=== PATIENT | male | born 1980 | race Caucasian/White ===

== ENCOUNTER 2016-12-25 19:40 | Emergency (ER) | payer OTHER ==
--- NOTE | 2016-12-25 22:20 | ED NURSING NOTES ---
Clinical Report - Nurses [facility] [address] [place] [address] 12/25/2016 19:41 Patient: CRISTIAN CORNELIUS TRIAGE Triage time 19:56. Acuity: LEVEL 3. Chief Complaint: ABDOMINAL PAIN and NAUSEA and ("6th gallbladder attack"). Alert. No acute distress. SEPSIS SCREEN: Sepsis Screen: negative. Negative (no infection suspected/documented). --20:09 Rafia Kimbrough R.N. 20:05 12/25/16. BP: 133/79. HR: 79. RR: 20. O2 saturation: 99% on room air. Temp: 97.2 F. Pain level now: 07/08. --20:09 Rafia Kimbrough R.N. Weight: 127 kg stated. Height/Length: 72 inches Per Patient. BMI: 38. --20:06 Rafia Kimbrough R.N. Medications Ranitidine HCl Oral 150 mg, 2x a day. --20:10 Rafia Kimbrough R.N. The following entry was struck by Rafia Kimbrough R.N., 20:10 (12/25/16) Reason - other. <<STRICKEN ENTRY-- Testosterone Transdermal. --19:56 Rafia Kimbrough R.N. --END STRIKE>>. Medication/allergy information source: the patient. --20:09 Rafia Kimbrough R.N. Allergies No Known Drug Allergy. --19:56 Rafia Kimbrough R.N. History Arrived by private vehicle. Historian: patient and family. Accompanied by family. Primary physician (chet). This started today. This is a recurrent problem and onset was abrupt. He has had nausea and abdominal pain. The pain is described as located in the upper abdomen and RUQ. No vomiting, diarrhea or constipation. Last oral intake by patient was (3 pm today). Treatment DRILL RIG OPERATOR HELPER: None. PAST MEDICAL HX: Immunizations: status is unknown. SOCIAL HX: Smoker- current status unknown (cigar). Occasional alcohol use. No drug use. No recent travel. No known contact with a sick individual. FALL RISK ASSESSMENT: Fall risk assessment completed. No fall risk identified. NUTRITIONAL RISK ASSESSMENT: The nutritional risk assessment revealed no deficiencies. FUNCTIONAL ASSESSMENT: Functional assessment: no impairments noted. LEARNING NEEDS ASSESSMENT: The learning needs assessment revealed no barriers. SKIN INTEGRITY ASSESSMENT: Skin integrity risk assessment completed. No skin integrity risk identified. --20:09 Rafia Kimbrough R.N. PROBLEMS: Gallbladder Disease. GI Disease. Abdominal Pain. Gastroesophageal Reflux Disease. --19:57 Rafia Kimbrough R.N. Interventions ID band on patient. To room. --20:09 Rafia Kimbrough R.N. PHYSICAL ASSESSMENT Ambulatory to room. Patient gowned. GENERAL / NEURO / PSYCH: Alert. Oriented X 4. Appears anxious. HEENT: Mucous membranes are pink. RESPIRATORY: Respirations not labored. CVS: Capillary refill less than 2 seconds. GI / : Abdominal tenderness in the right upper quadrant and epigastric area. SKIN: Skin is warm and dry. --20:10 Rafia Kimrbough R.N. NURSING PROGRESS NOTES Patient gowned. Head of bed elevated. Two patient identifiers checked. Call light placed in reach. Side rails up x 1. Bed placed in lowest position. Brakes of bed on. Patient ready for evaluation. --20:10 Rafia Kimbrough R.N. 20:21 12/25/2016 Site #1 started via IV in the right antecubital space with an 20g angiocath, with aseptic technique and good blood return; one attempt. Blood drawn: rainbow set. Labeled in the presence of the patient and sent to the lab. Saline lock flushed with 10 mL saline. --20:21 Rashard Casiano R.N. 20:35 12/25/2016 Toradol IVP 30 mg given over 1 minute(s) via site #1. Allergies verified and confirmed 5 rights. IV patency established. IV site checked: no pain, redness, or swelling. IV flushed thoroughly pre- and post-medication administration. IVP given by RN. --20:38 Rafia Kimbrough R.N. 20:39 12/25/2016 Zofran (Ondansetron HCl) IVP 4 mg given over 1 minute(s) via site #1. Allergies verified and confirmed 5 rights. IV patency established. IV site checked: no pain, redness, or swelling. IV flushed thoroughly pre- and post-medication administration. IVP given by RN. --20:39 Rafia Kimbrough R.N. 21:30 12/25/2016 Dilaudid (HYDROmorphone HCl PF) IVP 1 mg given. via site #1. Allergies verified, confirmed 5 rights and sedative warning given to the patient. IV patency established. IV site checked: no pain, redness, or swelling. IV flushed thoroughly pre- and post-medication administration. IVP given by RN. --21:30 Rafia Kimbrough R.N. 21:40. ( US at the bedside.). --21:56 Rafia Kimbrough R.N. Care transferred and report given (GWYN Mccray). --22:20 Rafia Kimbrough R.N. 22:54 12/25/2016 Site #1 removed upon discharge. Pressure dressing applied. --22:54 Jesus Paulino R.N. DISPOSITION / DISCHARGE Departure time: 2250. Condition at departure: improved. No learning barriers present. Discharge instructions provided and reviewed with the patient and spouse. Reviewed warnings. Reviewed medication(s). Treatments reviewed. Reviewed referrals. Patient and spouse verbalized understanding. Written instructions provided in Luxembourgish. The patient was discharged home and accompanied by spouse. He left the Emergency Department ambulatory and via private vehicle. Spouse driving. FALL RISK ASSESSMENT: Fall risk assessment completed. No fall risk identified. --22:56 Jesus Paulino R.N. 22:55 12/25/16. BP: 130/78. HR: 78. RR: 16. O2 saturation: 99%. Temp: 98 F. Pain level now 0/10. --22:56 Jesus Paulino R.N. Locked/Released at 12/25/2016 22:56 by Jesus Paulino R.N.
--- NOTE | 2016-12-25 22:20 | ED ORDER SUMMARY ---
..... Patient: CRISTIAN CORNELIUS OrderSheet [facility] VisitID: [id number] [place] [address] 36y, M Registration Date/Time: 12/25/2016 ORDER SHEET Weight: 127.0 kg (stated) Allergies: No Known Drug Allergy GENERAL ORDERS: US Abdomen Limited (No) Urgent (20:19 12/25/2016 HBivens A.R.N.P.) (Ack 20:29 LTapper) (21:30 SRoberts R.N.) CBC w Diff Urgent (20:20 12/25/2016 HBivens A.R.N.P.) (20:21 TLewis R.N.) CMP Urgent (20:20 12/25/2016 HBivens A.R.N.P.) (20:21 TLewis R.N.) UA-Culture if indicated Urgent (20:20 12/25/2016 HBivens A.R.N.P.) (Ack 20:33 LTapper) (22:55 JBullard R.N.) (Cancelled: Patient Left22:55 JBullard R.N.) Amylase Urgent (20:20 12/25/2016 HBivens A.R.N.P.) (20:22 TLewis R.N.) Lipase Urgent (20:20 12/25/2016 HBivens A.R.N.P.) (20:22 TLewis R.N.) MEDICATION ORDERS: IV FLUIDS: Toradol IV 30 mg (NOW) (20:19 12/25/2016 HBivens A.R.N.P.) (Ack 20:28 SRoberts R.N.) (20:38 SRoberts R.N.) Zofran IV 4 mg (NOW) (20:19 12/25/2016 HBivens A.R.N.P.) (Ack 20:28 SRoberts R.N.) (20:39 SRoberts R.N.) IV Saline Lock (20:20 12/25/2016 HBivens A.R.N.P.) (20:21 TLewis R.N.) Dilaudid IV 1 mg (HIGH ALERT MEDICATION, NOW) (21:17 12/25/2016 Luli A.R.N.P.) (21:30 Colton Alves) ORDER SHEET NOTES: [Electronically signed by Jesus Paulino R.N. (22:56 12/25/2016)] [Electronically signed by Louisa NuñezRElaineNElainePElaine (12:00 12/26/2016)] [Electronically locked/signed by Jesus Paulino R.N. (22:56 12/25/2016)]
--- NOTE | 2016-12-25 22:20 | ED ORDER SUMMARY ---
..... Patient: CRISTIAN CORNELIUS OrderSheet [facility] VisitID: [id number] [place] [address] 36y, M Registration Date/Time: 12/25/2016 ORDER SHEET Weight: 127.0 kg (stated) Allergies: No Known Drug Allergy GENERAL ORDERS: US Abdomen Limited (No) Urgent (20:19 12/25/2016 HBivens A.R.N.P.) (Ack 20:29 LTapper) (21:30 SRoberts R.N.) CBC w Diff Urgent (20:20 12/25/2016 HBivens A.R.N.P.) (20:21 TLewis R.N.) CMP Urgent (20:20 12/25/2016 HBivens A.R.N.P.) (20:21 TLewis R.N.) UA-Culture if indicated Urgent (20:20 12/25/2016 HBivens A.R.N.P.) (Ack 20:33 LTapper) (22:55 JBullard R.N.) (Cancelled: Patient Left22:55 JBullard R.N.) Amylase Urgent (20:20 12/25/2016 HBivens A.R.N.P.) (20:22 TLewis R.N.) Lipase Urgent (20:20 12/25/2016 HBivens A.R.N.P.) (20:22 TLewis R.N.) MEDICATION ORDERS: IV FLUIDS: Toradol IV 30 mg (NOW) (20:19 12/25/2016 HBivens A.R.N.P.) (Ack 20:28 SRoberts R.N.) (20:38 SRoberts R.N.) Zofran IV 4 mg (NOW) (20:19 12/25/2016 HBivens A.R.N.P.) (Ack 20:28 SRoberts R.N.) (20:39 SRoberts R.N.) IV Saline Lock (20:20 12/25/2016 HBivens A.R.N.P.) (20:21 TLewis R.N.) Dilaudid IV 1 mg (HIGH ALERT MEDICATION, NOW) (21:17 12/25/2016 Luli A.R.N.P.) (21:30 Colton Alves) ORDER SHEET NOTES: [Electronically signed by Jesus Paulino R.N. (22:56 12/25/2016)] [Electronically signed by Louisa NuñezRElaineNElainePElaine (12:00 12/26/2016)] [Electronically locked/signed by Jesus Paulino R.N. (22:56 12/25/2016)]
--- NOTE | 2016-12-25 22:20 | ED CLINICAL REPORT ---
Clinical Report - Physicians/Mid Levels [facility] [address] [place] [address] 12/25/2016 19:41 Patient: CRISTIAN CORNELIUS Time Seen: 19:53; upon arrival, initial patient contact, initial documentation, patient care assumed. Arrived- By private vehicle. Historian- patient. HISTORY OF PRESENT ILLNESS Chief Complaint: ABDOMINAL PAIN. At its maximum, severity described as severe. When seen in the E.D., severity described as severe. Modifying factors- worsened by food. Not relieved by anything. It is described as "pain". No radiation. It is described as located in the right upper quadrant. 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 It was abrupt in onset. The patient has had nausea. No loss of appetite, vomiting or diarrhea. No additional abdominal pain. (states his gallbladder is acting up, has done this many times before and the pain usually goes away in a few more hours, but this time he couldn't wait the pain out). No recent travel. Similar symptoms previously: Frequently, as bad. Recent medical care: The patient was seen recently in the office. ( had some gi scopes done a few days ago). REVIEW OF SYSTEMS No constipation, black stools, hematemesis, difficulty with urination or pain with urination. No urinary frequency, bloody stools, fever, chest pain or difficulty breathing. All systems otherwise negative, except as recorded above. PAST HISTORY See nurses notes. PROBLEMS: Gallbladder Disease. GI Disease. Abdominal Pain. Gastroesophageal Reflux Disease. --19:57 Rafia Kimbrough R.N. SOCIAL HISTORY Light tobacco smoker (cigar). Occasional alcohol use. No drug use. No recent travel. Is a local resident. FAMILY HISTORY Negative. ADDITIONAL NOTES The nursing notes have been reviewed with agreement regarding the chief complaint, HPI, ROS, PMH and patient medications and allergies. PHYSICAL EXAM Vital Signs: 12/25/2016 20:05 BP: 133/79. HR: 79. RR: 20. O2 saturation: 99%. Temp: 97.2 F. Pain level now: 8/10. Have been reviewed as normal and appear to be correct. Appearance: Alert. Oriented X3. No acute distress. Eyes: Pupils equal, round and reactive to light. Eyes normal inspection. Neck: Normal inspection. Neck supple. CVS: Normal heart rate and rhythm. Heart sounds normal. Pulses normal. Respiratory: No respiratory distress. Breath sounds normal. Chest nontender. Abdomen: Soft. Mild tenderness in the right upper quadrant. Bowel sounds normal. No organomegaly. No mass. Mildly obese. Tenderness present. Back: Normal inspection. Skin: Skin warm and dry. Normal skin color. No rash. Normal skin turgor. Extremities: Extremities exhibit normal ROM. No lower extremity edema. Neuro: Oriented X 3. No motor deficit. No sensory deficit. LABS, X-RAYS, AND EKG Abdominal Sonogram: No acute disease. (normal report from [facility]). Interpretation time: 21:48. Laboratory Tests: CBC w Diff: (MORALES: 12/25/2016 20:20) ( [facility] 12/25/2016 20:30) Final results Test Result Flag Units (Reference) WHITE BLOOD COUNT 7.5 K/uL (4.5-11.5) RED BLOOD COUNT 5.17 M/uL (4.50-5.90) HEMOGLOBIN 16.0 gm/dL (13.5-17.5) HEMATOCRIT 46.8 % (41.0-53.0) MEAN CELL VOLUME 91 fL (80-100) MEAN CORPUSCULAR HGB 31 pg (26-34) MEAN CORPUSCULAR HGB CONC 34 g/dL (31-37) RED CELL DISTRIBUTION WIDTH 12.9 % (11.6-14.8) PLATELET COUNT 179 K/uL (150-400) NEUTROPHIL % 80.5 H % (50-75) LYMPH % 12.6 L % (25-40) MONO % 5.7 % (3-14) EOSINOPHIL % 0.9 % (0-4) BASOPHIL % 0.3 % (0-2) CMP: (MORALES: 12/25/2016 20:20) ( [facility] 12/25/2016 20:59) Final results Test Result Flag Units (Reference) GLUCOSE 127 H mg/dL (70-110) BUN 19 H mg/dL (7-18) CREATININE 1.3 mg/dL (0.6-1.3) Estimated GFR >60 mL/min Estimated GFR- >60 mL/min Note: Persistent reduction over 3 months in eGFR<60 mL/min/1.73 m2 defines CKD. Patients with eGFR values>=60 mL/min/1.73 m2 may also have CKD if evidence ofpersistent proteinuria. Additional information may be foundat www.kidney.org. SODIUM 143 mmol/L (136-145) POTASSIUM 4.2 mmol/L (3.5-5.1) CHLORIDE 105 mmol/L (98-107) CARBON DIOXIDE 28 mmol/L (21-32) CALCIUM 8.3 L mg/dL (8.5-10.1) TOTAL PROTEIN 7.1 g/dL (6.4-8.2) ALBUMIN 4.2 g/dL (3.3-5.0) BILIRUBIN, TOTAL 0.3 mg/dL (0.0-1.0) ALKALINE PHOSPHATASE 86 U/L (46-116) AST (SGOT) 9 L U/L (15-37) ALT (SGPT) 58 U/L (12-78) LIPASE 148 U/L (73-393) AMYLASE 41 U/L (25-115) . PROGRESS AND PROCEDURES Course of Care: 20:50 12/25/16. pt has brief rebecca, nothing alarming, see report for full details. Patient counseled in person regarding the patient's stable condition, test results and diagnosis. 21:50. Differential Diagnosis: I considered gastritis, gastroenteritis, peptic ulcer disease, gastroesophageal reflux disease, acute appendicitis, diverticulitis, colon cancer, biliary colic, cholecystitis, cholelithiasis, hepatitis, pancreatitis, common bile duct obstruction, cholangitis, bile leak, ureterolithiasis and viral syndrome as a possible cause of abdominal pain in this patient. This is a partial list of diagnoses considered. Above considerations are based on history, physical exam, laboratory data and other information. Differential diagnosis was discussed with patient. Disposition: Discharged home in good and improved condition (22:20). Condition: good and stable. CLINICAL IMPRESSION Acute right upper quadrant abdominal pain of undetermined cause. INSTRUCTIONS Avoid fatty and fried/greasy foods. Warnings: GENERAL WARNINGS: Return or contact your physician immediately if your condition worsens or changes unexpectedly, if not improving as expected, or if other problems arise. SPECIFICALLY, return if you develop pain in the abdomen or pelvis, fever, the inability to keep fluids down, blood in vomitus, blood in diarrhea, fainting or lightheadedness. Prescription Medications: Zofran 4 mg: Take 1 orally every six hours as needed for nausea/vomiting. Dispense ten (10). No refills. Substitution is permissible. Pepcid 20 mg tablets: Take 1 orally every 12 hours. Dispense thirty (30). No refills. Substitution is permissible. Ultram 50 mg tablets: take 1-2 orally every 6 hours as needed for pain. Dispense twenty (20). No refills. Substitution is permissible. Follow-up: Follow up with your doctor in about three days even if well. Call for an appointment. Summary of care provided to patient. Understanding of the discharge instructions verbalized by patient. (Electronically signed by Louisa Nuñez A.R.N.P. 12/26/2016 12:00)
--- NOTE | 2016-12-25 22:40 | DIAGNOSTIC IMAGING REPORT ---
PROCEDURE: US ABDOMEN ULTRASOUND-LIMITED INDICATION: Right abdominal pain. TECHNIQUE: Yeung scale and color Doppler sonographic images of the abdomen were obtained. COMPARISON: Compared to abdominal ultrasound on 07/27/2016 FINDINGS: Gallbladder is normal. No evidence of gallstones. Common duct is normal (3 mm). Portions of the liver, pancreas, and right kidney are seen, and are normal. IMPRESSION: 1. Negative ultrasound of the gallbladder and right upper quadrant.
--- NOTE | 2016-12-26 12:00 | ED MED RECONCILIATION SUMMARY ---
Patient: CRISTIAN CORNELIUS Medication Reconciliation Report [facility] VisitID: [id number] [address] [place] [address] 36y, M Registration Date/Time: 12/25/2016 Weight: 127.0 kg Height/Length: 72 in. BMI: 38.0 ALLERGIES: No Known Drug Allergy The patient's Home Medications are listed below: THE FOLLOWING MEDICATIONS NEED TO BE RECONCILED: Ranitidine HCl Oral 150 mg, 2x a day The source(s) of the original Home Medication information: patient The following Medications were given to the patient in the Emergency Department: Toradol [IVP] IVP 30 mg, administered: 12/25/2016 8:35:00 PM Zofran [IVP] IVP 4 mg, administered: 12/25/2016 8:39:00 PM Dilaudid [IVP] IVP 1 mg, administered: 12/25/2016 9:30:00 PM The following Medications were prescribed to the patient: Zofran 4 mg: Take 1 orally every six hours as needed for nausea/vomiting. Dispense ten (10). No refills. Substitution is permissible. -- Louisa Nuñez, A.R.N.P. Pepcid 20 mg tablets: Take 1 orally every 12 hours. Dispense thirty (30). No refills. Substitution is permissible. -- Louisa Nuñez A.R.N.P. Ultram 50 mg tablets: take 1-2 orally every 6 hours as needed for pain. Dispense twenty (20). No refills. Substitution is permissible. -- Louisa Nuñez A.R.N.P.
--- NOTE | 2016-12-26 12:00 | ED MAR SUMMARY ---
..... Medication Administration Record [facility] [address] [place] [address] Patient: CRISTIAN CORNELIUS Visit ID: [id number] 36y, M Weight: 127.0 kg Height/Length: 72 in BMI: 38 ALLERGIES: No Known Drug Allergy Given 20:35 12/25/2016 Rafia Kimbrough R.N. Medication Administered: TORADOL [IVP], Dose: 30 mg IVP over 1 minute(s), Site: #1 right AC. Medication Ordered: Toradol IV 30 mg (NOW). Given 20:39 12/25/2016 Rafia Kimbrough R.N. Medication Administered: ZOFRAN [IVP] (ONDANSETRON HCL), Dose: 4 mg IVP over 1 minute(s), Site: #1 right AC. Medication Ordered: Zofran IV 4 mg (NOW). Given 21:30 12/25/2016 Rafia Kimbrough R.N. Medication Administered: DILAUDID [IVP] (HYDROMORPHONE HCL PF), Dose: 1 mg IVP, Site: #1 right AC. Medication Ordered: Dilaudid IV 1 mg (HIGH ALERT MEDICATION, NOW).
--- NOTE | 2016-12-26 12:00 | ED DISCHARGE INSTRUCTIONS ---
Patient: CRISTIAN CORNELIUS General Instructions [facility] VisitID: [id number] [place] [address] 36y, M Registration Date/Time: 12/25/2016 Acute right upper quadrant abdominal pain of undetermined cause. INSTRUCTIONS Avoid fatty and fried/greasy foods. Warnings: GENERAL WARNINGS: Return or contact your physician immediately if your condition worsens or changes unexpectedly, if not improving as expected, or if other problems arise. SPECIFICALLY, return if you develop pain in the abdomen or pelvis, fever, the inability to keep fluids down, blood in vomitus, blood in diarrhea, fainting or lightheadedness. Prescription Medications: Zofran 4 mg: Take 1 orally every six hours as needed for nausea/vomiting. Dispense ten (10). No refills. Substitution is permissible. Pepcid 20 mg tablets: Take 1 orally every 12 hours. Dispense thirty (30). No refills. Substitution is permissible. Ultram 50 mg tablets: take 1-2 orally every 6 hours as needed for pain. Dispense twenty (20). No refills. Substitution is permissible. Follow-up: Follow up with your doctor in about three days even if well. Call for an appointment. Summary of care provided to patient. Understanding of the discharge instructions verbalized by patient. ADDITIONAL INFORMATION Abdominal Pain,Uncertain Cause [Male] Based on your visit today, the exact cause of your abdominalpain is not clear. Your exam and tests do not indicate a dangerous cause at this time. However, the signs of a serious problem may take more time to appear. Although your evaluation was reassuring today, sometimes early in the course of many conditions, exam and lab tests can appear normal. Therefore, it is important for you to watch for any new symptoms or worsening of your condition. Causes It may not be obvious what caused your symptoms. Pay attention to things that do seem to make your symptoms worse or better and discuss this with your doctor when you follow up. Diagnosis The evaluation of abdominal pain in the emergency department may onlyrequire an exam by the doctor or it may include blood, urine or imaging studies, depending on many factors. Sometimes exams and tests can identify a cause but in many cases, a clear cause is not found. Further testing at follow up visits may help to suggest a clear diagnosis. Home Care Rest as much as possible until your next exam. Try to avoid any medications (unless otherwise directed by your doctor), foods, activities, or other factors that you may have contributed to your symptoms. Try to eat foods that you know that you have tolerated well in the past. Certain diets may be recommended for some conditions that cause abdominal pain. However, since the cause of your symptoms may not be clear, discuss your diet more with your primary care provider or specialist for further recommendations. Eating several small meals per day as opposed to 2 or 3 larger meals may help. Monitor closely for anything that may make your symptoms worse or better. Pay close attention to symptoms below that may indicate worsening of your condition. Follow Up and Precautions See your doctoras instructed or sooneror if your symptoms are not improving.In some cases, you may need more testing. When to Seek Medical Attention Contact your doctor or see medical attention ifany of the following occur: Pain is becoming worse You are unable to take your medications due to excessive vomiting Swelling of the abdomen Fever of 100.4F (38C) or higher, or as directed by your health care provider Blood in vomit or bowel movements (dark red or black color) Jaundice (yellow color of eyes and skin) New onset of weakness, dizziness or fainting New onset of chest, arm, back, neck or jaw pain Ondansetron Oral disintegrating tablet What is this medicine? ONDANSETRON (on IZAIAH se artis) is used to treat nausea and vomiting caused by chemotherapy. It is also used to prevent or treat nausea and vomiting after surgery. How should I use this medicine? These tablets are made to dissolve in the mouth. Do not try to push the tablet through the foil backing. With dry hands, peel away the foil backing and gently remove the tablet. Place the tablet in the mouth and allow it to dissolve, then swallow. While you may take these tablets with water, it is not necessary to do so. Talk to your surface plate inspector regarding the use of this medicine in children. Special care may be needed. What side effects may I notice from receiving this medicine? Side effects that you should report to your doctor or health daycare worker as soon as possible: allergic reactions like skin rash, itching or hives, swelling of the face, lips, or tongue breathing problems dizziness fast or irregular heartbeat feeling faint or lightheaded, falls fever and chills swelling of the hands and feet tightness in the chest Side effects that usually do not require medical attention (report to your doctor or health daycare worker if they continue or are bothersome): constipation or diarrhea headache What may interact with this medicine? Do not take this medicine with any of the following medications: -apomorphine -cisapride -dofetilide -dronedarone -pimozide -thioridazine -ziprasidone This medicine may also interact with the following medications: -carbamazepine -phenytoin -rifampicin -tramadol -other medicines that prolong the QT interval (cause an abnormal heart rhythm) What if I miss a dose? If you miss a dose, take it as soon as you can. If it is almost time for your next dose, take only that dose. Do not take double or extra doses. Where should I keep my medicine? Keep out of the reach of children. Store between 2 and 30 degrees C (36 and 86 degrees F). Throw away any unused medicine after the expiration date. What should I tell my health care provider before I take this medicine? They need to know if you have any of these conditions: heart disease history of irregular heartbeat liver disease low levels of magnesium or potassium in the blood an unusual or allergic reaction to ondansetron, granisetron, other medicines, foods, dyes, or preservatives or trying to get breast-feeding What should I watch for while using this medicine? Check with your doctor or health daycare worker as soon as you can if you have any sign of an allergic reaction. Famotidine Oral tablet What is this medicine? FAMOTIDINE (luis alberto lynch) is a type of antihistamine that blocks the release of stomach acid. It is used to treat stomach or intestinal ulcers. It can also relieve heartburn from acid reflux. How should I use this medicine? Take this medicine by mouth with a glass of water. Follow the directions on the prescription label. If you only take this medicine once a day, take it at bedtime. Take your doses at regular intervals. Do not take your medicine more often than directed. Talk to your surface plate inspector regarding the use of this medicine in children. Special care may be needed. What side effects may I notice from receiving this medicine? Side effects that you should report to your doctor or health daycare worker as soon as possible: agitation, nervousness confusion hallucinations skin rash, itching Side effects that usually do not require medical attention (report to your doctor or health daycare worker if they continue or are bothersome): constipation diarrhea dizziness headache What may interact with this medicine? delavirdine itraconazole ketoconazole What if I miss a dose? If you miss a dose, take it as soon as you can. If it is almost time for your next dose, take only that dose. Do not take double or extra doses. Where should I keep my medicine? Keep out of the reach of children. Store at room temperature between 15 and 30 degrees C (59 and 86 degrees F). Do not freeze. Throw away any unused medicine after the expiration date. What should I tell my health care provider before I take this medicine? They need to know if you have any of these conditions: kidney or liver disease trouble swallowing an unusual or allergic reaction to famotidine, other medicines, foods, dyes, or preservatives or trying to get breast-feeding What should I watch for while using this medicine? Tell your doctor or health daycare worker if your condition does not start to get better or if it gets worse. Finish the full course of tablets prescribed, even if you feel better. Do not take with aspirin, ibuprofen or other antiinflammatory medicines. These can make your condition worse. Do not smoke cigarettes or drink alcohol. These cause irritation in your stomach and can increase the time it will take for ulcers to heal. If you get black, tarry stools or vomit up what looks like coffee grounds, call your doctor or health daycare worker at once. You may have a bleeding ulcer. Tramadol Hydrochloride Oral tablet What is this medicine? TRAMADOL (TRA ma dole) is a pain reliever. It is used to treat moderate to severe pain in adults. How should I use this medicine? Take this medicine by mouth with a full glass of water. Follow the directions on the prescription label. If the medicine upsets your stomach, take it with food or milk. Do not take more medicine than you are told to take. Talk to your surface plate inspector regarding the use of this medicine in children. Special care may be needed. What side effects may I notice from receiving this medicine? Side effects that you should report to your doctor or health daycare worker as soon as possible: allergic reactions like skin rash, itching or hives, swelling of the face, lips, or tongue breathing difficulties, wheezing confusion itching light headedness or fainting spells redness, blistering, peeling or loosening of the skin, including inside the mouth seizures Side effects that usually do not require medical attention (report to your doctor or health daycare worker if they continue or are bothersome): constipation dizziness drowsiness headache nausea, vomiting What may interact with this medicine? Do not take this medicine with any of the following medications: MAOIs like Carbex, Eldepryl, Marplan, Nardil, and Parnate This medicine may also interact with the following medications: alcohol or medicines that contain alcohol antihistamines benzodiazepines bupropion carbamazepine or oxcarbazepine clozapine cyclobenzaprine digoxin furazolidone linezolid medicines for depression, anxiety, or psychotic disturbances medicines for migraine headache like almotriptan, eletriptan, frovatriptan, naratriptan, rizatriptan, sumatriptan, zolmitriptan medicines for pain like pentazocine, buprenorphine, butorphanol, meperidine, nalbuphine, and propoxyphene medicines for sleep muscle relaxants naltrexone phenobarbital phenothiazines like perphenazine, thioridazine, chlorpromazine, mesoridazine, fluphenazine, prochlorperazine, promazine, and trifluoperazine procarbazine warfarin What if I miss a dose? If you miss a dose, take it as soon as you can. If it is almost time for your next dose, take only that dose. Do not take double or extra doses. Where should I keep my medicine? Keep out of the reach of children. Store at room temperature between 15 and 30 degrees C (59 and 86 degrees F). Keep container tightly closed. Throw away any unused medicine after the expiration date. What should I tell my health care provider before I take this medicine? They need to know if you have any of these conditions: brain tumor depression drug abuse or addiction head injury if you frequently drink alcohol containing drinks kidney disease or trouble passing urine liver disease lung disease, asthma, or breathing problems seizures or epilepsy suicidal thoughts, plans, or attempt; a previous suicide attempt by you or a family member an unusual or allergic reaction to tramadol, codeine, other medicines, foods, dyes, or preservatives or trying to get breast-feeding What should I watch for while using this medicine? Tell your doctor or health daycare worker if your pain does not go away, if it gets worse, or if you have new or a different type of pain. You may develop tolerance to the medicine. Tolerance means that you will need a higher dose of the medicine for pain relief. Tolerance is normal and is expected if you take this medicine for a long time. Do not suddenly stop taking your medicine because you may develop a severe reaction. Your body becomes used to the medicine. This does NOT mean you are addicted. Addiction is a behavior related to getting and using a drug for a non-medical reason. If you have pain, you have a medical reason to take pain medicine. Your doctor will tell you how much medicine to take. If your doctor wants you to stop the medicine, the dose will be slowly lowered over time to avoid any side effects. You may get drowsy or dizzy. Do not drive, use machinery, or do anything that needs mental alertness until you know how this medicine affects you. Do not stand or sit up quickly, especially if you are an older patient. This reduces the risk of dizzy or fainting spells. Alcohol can increase or decrease the effects of this medicine. Avoid alcoholic drinks. You may have constipation. Try to have a bowel movement at least every 2 to 3 days. If you do not have a bowel movement for 3 days, call your doctor or health daycare worker. Your mouth may get dry. Chewing sugarless gum or sucking hard candy, and drinking plenty of water may help. Contact your doctor if the problem does not go away or is severe. You have been given the following additional information: Abdominal Pain, Unknown Cause, (Male) Ondansetron Oral disintegrating tablet Famotidine Oral tablet Tramadol Hydrochloride Oral tablet (Electronically signed by Louisa Nuñez A.R.N.P. 12/26/2016 12:00)
--- NOTE | 2016-12-26 12:00 | ED MED RECONCILIATION SUMMARY ---
Patient: CRISTIAN CORNELIUS Medication Reconciliation Report [facility] VisitID: [id number] [address] [place] [address] 36y, M Registration Date/Time: 12/25/2016 Weight: 127.0 kg Height/Length: 72 in. BMI: 38.0 ALLERGIES: No Known Drug Allergy The patient's Home Medications are listed below: THE FOLLOWING MEDICATIONS NEED TO BE RECONCILED: Ranitidine HCl Oral 150 mg, 2x a day The source(s) of the original Home Medication information: patient The following Medications were given to the patient in the Emergency Department: Toradol [IVP] IVP 30 mg, administered: 12/25/2016 8:35:00 PM Zofran [IVP] IVP 4 mg, administered: 12/25/2016 8:39:00 PM Dilaudid [IVP] IVP 1 mg, administered: 12/25/2016 9:30:00 PM The following Medications were prescribed to the patient: Zofran 4 mg: Take 1 orally every six hours as needed for nausea/vomiting. Dispense ten (10). No refills. Substitution is permissible. -- Louisa Nuñez, A.R.N.P. Pepcid 20 mg tablets: Take 1 orally every 12 hours. Dispense thirty (30). No refills. Substitution is permissible. -- Louisa Nuñez A.R.N.P. Ultram 50 mg tablets: take 1-2 orally every 6 hours as needed for pain. Dispense twenty (20). No refills. Substitution is permissible. -- Louisa Nuñez A.R.N.P.
--- NOTE | 2016-12-26 12:00 | ED DISCHARGE INSTRUCTIONS ---
Patient: CRISTIAN CORNELIUS General Instructions Located Within [facility] VisitID: [id number] [place] [address] 36y, M Registration Date/Time: 12/25/2016 Acute right upper quadrant abdominal pain of undetermined cause. INSTRUCTIONS Avoid fatty and fried/greasy foods. Warnings: GENERAL WARNINGS: Return or contact your physician immediately if your condition worsens or changes unexpectedly, if not improving as expected, or if other problems arise. SPECIFICALLY, return if you develop pain in the abdomen or pelvis, fever, the inability to keep fluids down, blood in vomitus, blood in diarrhea, fainting or lightheadedness. Prescription Medications: Zofran 4 mg: Take 1 orally every six hours as needed for nausea/vomiting. Dispense ten (10). No refills. Substitution is permissible. Pepcid 20 mg tablets: Take 1 orally every 12 hours. Dispense thirty (30). No refills. Substitution is permissible. Ultram 50 mg tablets: take 1-2 orally every 6 hours as needed for pain. Dispense twenty (20). No refills. Substitution is permissible. Follow-up: Follow up with your doctor in about three days even if well. Call for an appointment. Summary of care provided to patient. Understanding of the discharge instructions verbalized by patient. ADDITIONAL INFORMATION Abdominal Pain,Uncertain Cause [Male] Based on your visit today, the exact cause of your abdominalpain is not clear. Your exam and tests do not indicate a dangerous cause at this time. However, the signs of a serious problem may take more time to appear. Although your evaluation was reassuring today, sometimes early in the course of many conditions, exam and lab tests can appear normal. Therefore, it is important for you to watch for any new symptoms or worsening of your condition. Causes It may not be obvious what caused your symptoms. Pay attention to things that do seem to make your symptoms worse or better and discuss this with your doctor when you follow up. Diagnosis The evaluation of abdominal pain in the emergency department may onlyrequire an exam by the doctor or it may include blood, urine or imaging studies, depending on many factors. Sometimes exams and tests can identify a cause but in many cases, a clear cause is not found. Further testing at follow up visits may help to suggest a clear diagnosis. Home Care Rest as much as possible until your next exam. Try to avoid any medications (unless otherwise directed by your doctor), foods, activities, or other factors that you may have contributed to your symptoms. Try to eat foods that you know that you have tolerated well in the past. Certain diets may be recommended for some conditions that cause abdominal pain. However, since the cause of your symptoms may not be clear, discuss your diet more with your primary care provider or specialist for further recommendations. Eating several small meals per day as opposed to 2 or 3 larger meals may help. Monitor closely for anything that may make your symptoms worse or better. Pay close attention to symptoms below that may indicate worsening of your condition. Follow Up and Precautions See your doctoras instructed or sooneror if your symptoms are not improving.In some cases, you may need more testing. When to Seek Medical Attention Contact your doctor or see medical attention ifany of the following occur: Pain is becoming worse You are unable to take your medications due to excessive vomiting Swelling of the abdomen Fever of 100.4F (38C) or higher, or as directed by your health care provider Blood in vomit or bowel movements (dark red or black color) Jaundice (yellow color of eyes and skin) New onset of weakness, dizziness or fainting New onset of chest, arm, back, neck or jaw pain Ondansetron Oral disintegrating tablet What is this medicine? ONDANSETRON (on IZAIAH se artis) is used to treat nausea and vomiting caused by chemotherapy. It is also used to prevent or treat nausea and vomiting after surgery. How should I use this medicine? These tablets are made to dissolve in the mouth. Do not try to push the tablet through the foil backing. With dry hands, peel away the foil backing and gently remove the tablet. Place the tablet in the mouth and allow it to dissolve, then swallow. While you may take these tablets with water, it is not necessary to do so. Talk to your implementation director regarding the use of this medicine in children. Special care may be needed. What side effects may I notice from receiving this medicine? Side effects that you should report to your doctor or health managed care analyst as soon as possible: allergic reactions like skin rash, itching or hives, swelling of the face, lips, or tongue breathing problems dizziness fast or irregular heartbeat feeling faint or lightheaded, falls fever and chills swelling of the hands and feet tightness in the chest Side effects that usually do not require medical attention (report to your doctor or health managed care analyst if they continue or are bothersome): constipation or diarrhea headache What may interact with this medicine? Do not take this medicine with any of the following medications: -apomorphine -cisapride -dofetilide -dronedarone -pimozide -thioridazine -ziprasidone This medicine may also interact with the following medications: -carbamazepine -phenytoin -rifampicin -tramadol -other medicines that prolong the QT interval (cause an abnormal heart rhythm) What if I miss a dose? If you miss a dose, take it as soon as you can. If it is almost time for your next dose, take only that dose. Do not take double or extra doses. Where should I keep my medicine? Keep out of the reach of children. Store between 2 and 30 degrees C (36 and 86 degrees F). Throw away any unused medicine after the expiration date. What should I tell my health care provider before I take this medicine? They need to know if you have any of these conditions: heart disease history of irregular heartbeat liver disease low levels of magnesium or potassium in the blood an unusual or allergic reaction to ondansetron, granisetron, other medicines, foods, dyes, or preservatives or trying to get breast-feeding What should I watch for while using this medicine? Check with your doctor or health managed care analyst as soon as you can if you have any sign of an allergic reaction. Famotidine Oral tablet What is this medicine? FAMOTIDINE (luis alberto lynch) is a type of antihistamine that blocks the release of stomach acid. It is used to treat stomach or intestinal ulcers. It can also relieve heartburn from acid reflux. How should I use this medicine? Take this medicine by mouth with a glass of water. Follow the directions on the prescription label. If you only take this medicine once a day, take it at bedtime. Take your doses at regular intervals. Do not take your medicine more often than directed. Talk to your implementation director regarding the use of this medicine in children. Special care may be needed. What side effects may I notice from receiving this medicine? Side effects that you should report to your doctor or health managed care analyst as soon as possible: agitation, nervousness confusion hallucinations skin rash, itching Side effects that usually do not require medical attention (report to your doctor or health managed care analyst if they continue or are bothersome): constipation diarrhea dizziness headache What may interact with this medicine? delavirdine itraconazole ketoconazole What if I miss a dose? If you miss a dose, take it as soon as you can. If it is almost time for your next dose, take only that dose. Do not take double or extra doses. Where should I keep my medicine? Keep out of the reach of children. Store at room temperature between 15 and 30 degrees C (59 and 86 degrees F). Do not freeze. Throw away any unused medicine after the expiration date. What should I tell my health care provider before I take this medicine? They need to know if you have any of these conditions: kidney or liver disease trouble swallowing an unusual or allergic reaction to famotidine, other medicines, foods, dyes, or preservatives or trying to get breast-feeding What should I watch for while using this medicine? Tell your doctor or health managed care analyst if your condition does not start to get better or if it gets worse. Finish the full course of tablets prescribed, even if you feel better. Do not take with aspirin, ibuprofen or other antiinflammatory medicines. These can make your condition worse. Do not smoke cigarettes or drink alcohol. These cause irritation in your stomach and can increase the time it will take for ulcers to heal. If you get black, tarry stools or vomit up what looks like coffee grounds, call your doctor or health managed care analyst at once. You may have a bleeding ulcer. Tramadol Hydrochloride Oral tablet What is this medicine? TRAMADOL (TRA ma dole) is a pain reliever. It is used to treat moderate to severe pain in adults. How should I use this medicine? Take this medicine by mouth with a full glass of water. Follow the directions on the prescription label. If the medicine upsets your stomach, take it with food or milk. Do not take more medicine than you are told to take. Talk to your implementation director regarding the use of this medicine in children. Special care may be needed. What side effects may I notice from receiving this medicine? Side effects that you should report to your doctor or health managed care analyst as soon as possible: allergic reactions like skin rash, itching or hives, swelling of the face, lips, or tongue breathing difficulties, wheezing confusion itching light headedness or fainting spells redness, blistering, peeling or loosening of the skin, including inside the mouth seizures Side effects that usually do not require medical attention (report to your doctor or health managed care analyst if they continue or are bothersome): constipation dizziness drowsiness headache nausea, vomiting What may interact with this medicine? Do not take this medicine with any of the following medications: MAOIs like Carbex, Eldepryl, Marplan, Nardil, and Parnate This medicine may also interact with the following medications: alcohol or medicines that contain alcohol antihistamines benzodiazepines bupropion carbamazepine or oxcarbazepine clozapine cyclobenzaprine digoxin furazolidone linezolid medicines for depression, anxiety, or psychotic disturbances medicines for migraine headache like almotriptan, eletriptan, frovatriptan, naratriptan, rizatriptan, sumatriptan, zolmitriptan medicines for pain like pentazocine, buprenorphine, butorphanol, meperidine, nalbuphine, and propoxyphene medicines for sleep muscle relaxants naltrexone phenobarbital phenothiazines like perphenazine, thioridazine, chlorpromazine, mesoridazine, fluphenazine, prochlorperazine, promazine, and trifluoperazine procarbazine warfarin What if I miss a dose? If you miss a dose, take it as soon as you can. If it is almost time for your next dose, take only that dose. Do not take double or extra doses. Where should I keep my medicine? Keep out of the reach of children. Store at room temperature between 15 and 30 degrees C (59 and 86 degrees F). Keep container tightly closed. Throw away any unused medicine after the expiration date. What should I tell my health care provider before I take this medicine? They need to know if you have any of these conditions: brain tumor depression drug abuse or addiction head injury if you frequently drink alcohol containing drinks kidney disease or trouble passing urine liver disease lung disease, asthma, or breathing problems seizures or epilepsy suicidal thoughts, plans, or attempt; a previous suicide attempt by you or a family member an unusual or allergic reaction to tramadol, codeine, other medicines, foods, dyes, or preservatives or trying to get breast-feeding What should I watch for while using this medicine? Tell your doctor or health managed care analyst if your pain does not go away, if it gets worse, or if you have new or a different type of pain. You may develop tolerance to the medicine. Tolerance means that you will need a higher dose of the medicine for pain relief. Tolerance is normal and is expected if you take this medicine for a long time. Do not suddenly stop taking your medicine because you may develop a severe reaction. Your body becomes used to the medicine. This does NOT mean you are addicted. Addiction is a behavior related to getting and using a drug for a non-medical reason. If you have pain, you have a medical reason to take pain medicine. Your doctor will tell you how much medicine to take. If your doctor wants you to stop the medicine, the dose will be slowly lowered over time to avoid any side effects. You may get drowsy or dizzy. Do not drive, use machinery, or do anything that needs mental alertness until you know how this medicine affects you. Do not stand or sit up quickly, especially if you are an older patient. This reduces the risk of dizzy or fainting spells. Alcohol can increase or decrease the effects of this medicine. Avoid alcoholic drinks. You may have constipation. Try to have a bowel movement at least every 2 to 3 days. If you do not have a bowel movement for 3 days, call your doctor or health managed care analyst. Your mouth may get dry. Chewing sugarless gum or sucking hard candy, and drinking plenty of water may help. Contact your doctor if the problem does not go away or is severe. You have been given the following additional information: Abdominal Pain, Unknown Cause, (Male) Ondansetron Oral disintegrating tablet Famotidine Oral tablet Tramadol Hydrochloride Oral tablet (Electronically signed by Louisa Nuñez A.R.N.P. 12/26/2016 12:00)
--- NOTE | 2016-12-26 12:00 | ED MAR SUMMARY ---
..... Medication Administration Record [facility] [address] [place] [address] Patient: CRISTIAN CORNELIUS Visit ID: [id number] 36y, M Weight: 127.0 kg Height/Length: 72 in BMI: 38 ALLERGIES: No Known Drug Allergy Given 20:35 12/25/2016 Rafia Kimbrough R.N. Medication Administered: TORADOL [IVP], Dose: 30 mg IVP over 1 minute(s), Site: #1 right AC. Medication Ordered: Toradol IV 30 mg (NOW). Given 20:39 12/25/2016 Rafia Kimbrough R.N. Medication Administered: ZOFRAN [IVP] (ONDANSETRON HCL), Dose: 4 mg IVP over 1 minute(s), Site: #1 right AC. Medication Ordered: Zofran IV 4 mg (NOW). Given 21:30 12/25/2016 Rafia Kimbrough R.N. Medication Administered: DILAUDID [IVP] (HYDROMORPHONE HCL PF), Dose: 1 mg IVP, Site: #1 right AC. Medication Ordered: Dilaudid IV 1 mg (HIGH ALERT MEDICATION, NOW).
== END 2016-12-25 22:50 | disposition home or self-care (01) ==
LOC: ED SRH 19:40
DX: R10.11 Right upper quadrant pain (principal); R11.0 Nausea; K21.0 Gastro-esophageal reflux disease with esophagitis; F17.290 Nicotine dependence, other tobacco product, uncomplicated
CPT/HCPCS: 90100; 92235; 92530; 95059

== ENCOUNTER 2017-05-18 02:23 | Observation (INO) | payer BC ==
[2017-05-18] VITALS (10 sets, daily range): BP systolic 113–138; BP diastolic 51–85
[~2017-05-18] VITALS: Ht 182.9 cm; Wt 132.3 kg
--- NOTE | 2017-05-18 06:00 | ED ORDER SUMMARY ---
..... Patient: CRIST[facility] [id number] [place] [address] 36y, M Registration Date/Time: 05/18/2017 ORDER SHEET Weight: 129.2 kg (stated) Allergies: No Known Drug Allergy GENERAL ORDERS: US Abdomen Limited (Yes) Urgent (02:43 05/18/2017 Zhang RYDER) (Ack 2:54 IJurca ER Tech1) (4:26 CBradburn R.N.) CBC w Diff Urgent (02:44 05/18/2017 Zhang RYDER) (2:47 Srinivasan R.N.) CMP Urgent (02:05/18/2017 Zhang RYDER) (2:47 Srinivasan R.N.) Amylase Urgent (02:05/18/2017 Zhang RYDER) (2:47 JOSÉ MIGUELradjudy R.N.) Lipase Urgent (02:44 05/18/2017 hZang RYDER) (2:47 JOSÉ MIGUELradjudy R.N.) CT Abd/Pel wo Cont Urgent (04:05/18/2017 Zhang RYDER) (Ack 4:29 LEAurca ER Tech1) (4:37 JOSÉ MIGUELradjudy R.N.) UA-Culture if indicated Urgent (04:05/18/2017 Zhang RYDER) (Ack 4:29 Jackia ER Tech1) (4:53 JOSÉ MIGUELradburn R.N.) Urine Drug Screen Urgent (04:05/18/2017 Zhang RYDER) (Ack 4:29 LEAurckyrie ER Tech1) (4:53 JOSÉ MIGUELradjudy R.N.) CRP Urgent (05:05/18/2017 Zhang RYDER) (5:22 Srinivasan R.N.) PCT (Procalcitonin) Urgent (05:05/18/2017 Zhang RYDER) (5:22 Srinivasan R.N.) MEDICATION ORDERS: IV FLUIDS: Demerol IV 25 mg (NOW) (02:43 05/18/2017 Zhang RYDER) (2:48 JOSÉ MIGUELradjudy R.N.) Zofran IV 4 mg (NOW) (02:43 05/18/2017 Zhang RYDER) (2:48 CBradjudy R.N.) IV NS : initial bolus 1000 mL (1000 mL/hr), then 200 mL/hr for 4h (NOW); Routine (02:44 05/18/2017 Zhang RYDER) (2:48 CBandreia R.N.) Demerol IV 12.5 mg (NOW) (03:16 05/18/2017 Srinivasan R.N. verbal order read back to Zhang RYDER) (3:17 Srinivasan R.N.) Demerol IV 25 mg (HIGH ALERT MEDICATION, NOW) (03:28 05/18/2017 Srinivasan LeiN. verbal order read back to Zhang RYDER) (3:29 Srinivasan R.N.) over 2 minutes Ativan IV 0.5 mg (NOW) (03:28 05/18/2017 Srinivasan R.N. verbal order read back to Zhang RYDER) (3:30 Srinivasan R.N.) over 2 minutes Toradol IV 30 mg (NOW) (04:28 05/18/2017 Zhang RYDER) (4:35 Srinivasan R.N.) ORDER SHEET NOTES: [Electronically signed by Yosi Mosley MD (07:18 05/18/2017)] [Electronically signed by Jayme Maddox R.N. (11:31 05/29/2017)] [Electronically locked/signed by Jayme Maddox R.N. (11:31 05/29/2017)]
--- NOTE | 2017-05-18 06:00 | ED CLINICAL REPORT ---
Clinical Report - Physicians/Mid Levels [facility] [address] [place] [address] 05/18/2017 2:23 Patient: CRISTIAN CORNELIUS Time Seen: 02:39 Bon 2016. Arrived- By private vehicle. Historian- patient. Note: (Pt 4th visit at this hospital for RUQ pain in the last 10 months.). CPT: ER phys charges level 5 (#[id number]). HISTORY OF PRESENT ILLNESS Chief Complaint: ABDOMINAL PAIN. At its maximum, severity described as 9 / 10. When seen in the E.D., severity described as 9 / 10. Modifying factors. Not worsened by anything. Not relieved by anything. This started today about 0100 and is still present. It is described as "pain" and well localized and it is described as located in the right upper quadrant and radiating to the upper back. The patient has had nausea. No loss of appetite, vomiting or diarrhea. No recent travel. Similar symptoms previously: Milder. Seen in ED. Diagnosis: gall stones. Recent medical care: Not recently seen/assessed. REVIEW OF SYSTEMS No constipation, black stools, hematemesis or difficulty with urination or urination. No pain with urination, urinary frequency, fever or sore throat or throat. No chest pain, difficulty breathing, cough or joint pain. No skin rash or rash, constipation, diarrhea or weakness. No diabetic symptoms or easy bruising. The patient has had chills and back pain. All systems otherwise negative, except as recorded above. PAST HISTORY Gallstones. Orosco's : S/P EGD and colonoscopy. [facility] ER visits times 4 times in past 8 months for RUQ pain. Additional Surgeries: no known surgeries. Medications: Ranitidine HCl Oral 150 mg, 2x a day. Allergies: No Known Drug Allergy. SOCIAL HISTORY Never smoker. Occasional alcohol use. No drug use. ADDITIONAL NOTES The nursing notes have been reviewed. PHYSICAL EXAM Vital Signs: 05/18/2017 02:28 BP: 135/76. HR: 101. RR: 20. O2 saturation: 100%. Temp: 97.7 F. Pain level now: 9/10. Appearance: Alert. Appears to be in pain. Patient in severe distress. (Cannot stand still-pacing). Eyes: Eyes normal inspection. ENT: Pharynx normal. Neck: Normal inspection. CVS: Normal heart rate and rhythm. Heart sounds normal. Pulses normal. Respiratory: No respiratory distress. Breath sounds normal. Chest nontender. Abdomen: Soft. Moderate tenderness in the right upper quadrant. Abnormal bowel sounds: diminished. Back: Normal inspection. No CVA tenderness. Skin: Skin warm. Normal skin color. No rash. Extremities: Extremities exhibit normal ROM. Neuro: Oriented X 3. No motor deficit. No sensory deficit. LABS, X-RAYS, AND EKG Abdominal CT: No acute disease. Abdominal Sonogram: Multiple gallstones are present (all mobile). No gallbladder wall thickening, pericholecystic fluid or dilated common duct. The study was independently viewed by me and interpreted contemporaneously by me. Laboratory Tests: CBC w Diff: (MORALES: 05/18/2017 02:35) ( [facility] 05/18/2017 02:56) Final results Test Result Flag Units (Reference) WHITE BLOOD COUNT 7.8 K/uL (4.5-11.5) RED BLOOD COUNT 5.49 M/uL (4.50-5.90) HEMOGLOBIN 16.6 gm/dL (13.5-17.5) HEMATOCRIT 50.9 % (41.0-53.0) MEAN CELL VOLUME 93 fL (80-100) MEAN CORPUSCULAR HGB 30 pg (26-34) MEAN CORPUSCULAR HGB CONC 33 g/dL (31-37) RED CELL DISTRIBUTION WIDTH 12.3 % (11.6-14.8) PLATELET COUNT 218 K/uL (150-400) LYMPH % 37.5 % (25-40) MONO % 5.9 % (3-14) GRANULOCYTE % 56.6 CMP: (MORALES: 05/18/2017 02:35) ( [facility] 05/18/2017 03:10) Final results Test Result Flag Units (Reference) GLUCOSE 127 H mg/dL (70-110) BUN 16 mg/dL (7-18) CREATININE 1.3 mg/dL (0.6-1.3) Estimated GFR >60 mL/min Estimated GFR- >60 mL/min Note: Persistent reduction over 3 months in eGFR<60 mL/min/1.73 m2 defines CKD. Patients with eGFR values>=60 mL/min/1.73 m2 may also have CKD if evidence ofpersistent proteinuria. Additional information may be foundat www.kidney.org. SODIUM 140 mmol/L (136-145) POTASSIUM 3.8 mmol/L (3.5-5.1) CHLORIDE 104 mmol/L (98-107) CARBON DIOXIDE 30 mmol/L (21-32) CALCIUM 8.6 mg/dL (8.5-10.1) TOTAL PROTEIN 7.4 g/dL (6.4-8.2) ALBUMIN 4.2 g/dL (3.3-5.0) BILIRUBIN, TOTAL 0.4 mg/dL (0.0-1.0) ALKALINE PHOSPHATASE 93 U/L (46-116) AST (SGOT) 24 U/L (15-37) ALT (SGPT) 61 U/L (12-78) LIPASE 186 U/L (73-393) AMYLASE 44 U/L (25-115) . PROGRESS AND PROCEDURES Course of Care: IV NS Demerol 25 mg IV times 2 then 12.5 mg IV Pt asking for more narcotics. Zofran 4 mg IV Ativan 0.5 mg IV Patient is stable. Symptoms better. Discussed case with on-call health care provider, (Roxy). Reviewed test results. Agreed upon decision to admit. Health care provider will see patient in ED. Patient/family counseled. Old medical records ordered. Disposition orders written. Disposition: Admitted to Acute Care. CLINICAL IMPRESSION Acute cholecystitis with cholelithiasis. No obstruction or choledocholithiasis. (Electronically signed by Yosi Mosley MD 05/18/2017 7:18)
--- NOTE | 2017-05-18 06:00 | ED NURSING NOTES ---
Clinical Report - Nurses [facility] [address] [place] [address] 05/18/2017 2:23 Patient: CRISTIAN CORNELIUS TRIAGE Triage time 02:28. Acuity: LEVEL 3. Chief Complaint: ABDOMINAL PAIN and NAUSEA and CHILLS. --02:31 Leny Valadez R.N. 02:28 05/18/17. BP: 135/76 taken on the left arm, while lying. HR: 101 (regular and tachycardic). RR: 20. O2 saturation: 100%. Temp: 97.7 F (oral). Pain level now: 08/08. --02:31 Leny Valadez R.N. Weight: 129.2 kg stated. Height/Length: 72 inches Per Patient. BMI: 38.7. --02:30 Leny Valadez R.N. Medications Ranitidine HCl Oral 150 mg, 2x a day. --02:30 Leny Valadez R.N. Allergies No Known Drug Allergy. --02:30 Leny Valadez R.N. History Arrived by private vehicle. Historian: patient. Unaccompanied. Primary physician (Jamie). Onset. (1.5 hours). PAST MEDICAL HX: Immunizations: up-to-date. SOCIAL HX: Never smoker. Occasional alcohol use. No drug use. No infectious disease exposure. No known contact with a sick individual. ABUSE ASSESSMENT: No report of abuse. SELF HARM ASSESSMENT: A self harm assessment was performed. The patient answered "no" to the question "Have you recently felt down, depressed, or hopeless?", "Have you noticed less interest or pleasure in doing things?", "Do you have thoughts of harming or killing yourself?", "Are you here because you tried to hurt yourself?", "Have you ever tried to hurt yourself before today?", "Have you recently had thoughts about harming or killing others?" and "Do you have any dangerous items in your possession?". FALL RISK ASSESSMENT: Fall risk assessment completed. No fall risk identified. NUTRITIONAL RISK ASSESSMENT: The nutritional risk assessment revealed no deficiencies. FUNCTIONAL ASSESSMENT: Functional assessment: no impairments noted. LEARNING NEEDS ASSESSMENT: The learning needs assessment revealed no barriers. SKIN INTEGRITY ASSESSMENT: Skin integrity risk assessment completed. No skin integrity risk identified. --02:31 Leny Valadez R.N. PROBLEMS: Gallbladder Disease. GI Disease. Abdominal Pain. Gastroesophageal Reflux Disease. --02:30 Leny Valadez R.N. ADDITIONAL SURGERIES: no known surgeries. Interventions ID band on patient. --02:31 Leny Valadez R.N. PHYSICAL ASSESSMENT Ambulatory to room. GENERAL / NEURO / PSYCH: Alert. Oriented X 4. Appears in no acute distress. Appears in pain. HEENT: Mucous membranes are pink. RESPIRATORY: Respirations not labored. Breath sounds within normal limits. CVS: Normal sinus rhythm noted. Capillary refill less than 2 seconds. GI / : The patient has had nausea. Mild obesity. Abdominal tenderness in the upper abdomen, right upper quadrant and epigastric area. Bowel sounds within normal limits. SKIN: Skin is warm. Skin is slightly diaphoretic. --02:33 Leny Valadez R.N. NURSING PROGRESS NOTES Patient ready for evaluation- chart flagged. --02:33 Leny Valadez R.N. 02:38 05/18/2017 Site #1 started via IV in the right antecubital space with an 20g angiocath, with aseptic technique and good blood return; one attempt. Blood drawn: rainbow set. Labeled in the presence of the patient and sent to the lab. Saline lock flushed with 10 mL saline. --02:41 Leny Valadez R.N. 02:45 05/18/2017 Started bag #1 1000 mL IV Fluids IV NS (Saline); bolus of 1000 mL wide open then over 1 hour(s) via site #1. Allergies verified and confirmed 5 rights. IV patency established. IV site checked: no pain, redness, or swelling. IV flushed thoroughly pre- and post-medication administration. --02:48 Leny Valadez R.N. 02:46 05/18/2017 Demerol (Meperidine HCl) IVP 25 mg given over 2 minute(s) via site #1. Allergies verified and confirmed 5 rights. IV patency established. IV site checked: no pain, redness, or swelling. IV flushed thoroughly pre- and post-medication administration. IVP given by RN. --02:48 Leny Valadez R.N. 02:48 05/18/2017 Zofran (Ondansetron HCl) IVP 4 mg given over 2 minute(s) via site #1. Allergies verified and confirmed 5 rights. IV patency established. IV site checked: no pain, redness, or swelling. IV flushed thoroughly pre- and post-medication administration. IVP given by RN. --02:48 Leny Valadez R.N. 03:00 05/18/2017 Demerol IVP Response: no adverse reaction pain is improving. Symptoms are the same. The patient feels the same. (). --03:02 Leny Valadez R.N. 03:01 05/18/2017 Demerol (Meperidine HCl) IVP 12.5 mg given over 2 minute(s) via site #1. Allergies verified and confirmed 5 rights. IV patency established. IV site checked: no pain, redness, or swelling. IV flushed thoroughly pre- and post-medication administration. IVP given by RN. --03:17 Leny Valadez R.N. 03:25 05/18/2017 Demerol IVP Response: no adverse reaction pain is worsening. Symptoms are the same. The patient feels the same. ED physician notified (07/08). --03:30 Leny Valadez R.N. 03:27 05/18/2017 Demerol (Meperidine HCl) IVP 25 mg given over 2 minute(s) via site #1. Allergies verified and confirmed 5 rights. IV patency established. IV site checked: no pain, redness, or swelling. IV flushed thoroughly pre- and post-medication administration. IVP given by RN. --03:29 Leny Valadez R.N. 03:29 05/18/2017 Ativan (LORazepam) IVP 0.5 mg given over 2 minute(s) via site #1. Allergies verified, confirmed 5 rights and sedative warning given to the patient. IV patency established. IV site checked: no pain, redness, or swelling. IV flushed thoroughly pre- and post-medication administration. IVP given by RN. --03:30 Leny Valadez R.N. 04:35 05/18/2017 Toradol IVP 30 mg given over 2 minute(s) via site #1. Allergies verified and confirmed 5 rights. IV patency established. IV site checked: no pain, redness, or swelling. IV flushed thoroughly pre- and post-medication administration. IVP given by RN. --04:35 Leny Valadez R.N. Patient walked to CT with tech. --04:38 Leny Valadez R.N. Patient walked back to ED from CT with tech. (04:45). --04:48 Leny Valadez R.N. Patient ID band checked for patient name and birthdate: patient confirmed. Instructions provided to collect clean catch urine and patient verbalized understanding. Clean catch urine collected with return of yellow-colored clear urine; sample sent to lab for urinalysis, culture and drug screen. Specimen labeled in the presence of the patient. --04:54 Leny Valadez R.N. Overall patient status is improved- he states feels better. GI / : The patient reports abdominal pain located in the RUQ is still present but improving and currently mild in severity and intermittent. Abdomen soft and nontender. Bowel sounds within normal limits. SKIN: Skin is warm and dry. Skin color within normal limits. --04:54 Leny Valadez R.N. Call light placed in reach. --04:54 Leny Valadez R.N. The patient is calm. Overall patient status is improved- he states feels better. ( pt better, resting quietly, no distress at this time, will continue to monitor). GI / : The patient reports abdominal pain located in the RUQ and epigastrium is still present but improving and currently mild in severity, constant and described as dull and aching. Abdomen soft. Bowel sounds within normal limits. SKIN: Skin is warm and dry. Skin color within normal limits. --06:09 Leny Valadez R.N. 06:00 05/18/17. BP: 129/74 taken on the left arm, while lying. HR: 96 (regular and normal rate). RR: 18 (regular and unlabored). O2 saturation: 99%. Temp: deferred. Pain level now: 03/08. --06:09 Leny Valadez R.N. 06:38 05/18/17. BP: 152/82 taken on the left arm, while lying. HR: 77 (regular, normal rate and strong). RR: 16 (regular and unlabored). O2 saturation: 97% on room air. Temp: deferred. Pain level now: . --06:39 Leny Valadez R.N. The patient reports no complaints and he is calm. Overall patient status is improved- he states feels better. GI / : Abdomen soft and nontender. Bowel sounds within normal limits. SKIN: Skin is warm and dry. Skin color within normal limits. Two patient identifiers checked. Call light placed in reach. Side rails up x 1. Bed placed in lowest position. Brakes of bed on. --06:39 Leny Valadez R.N. 04:39 05/18/2017 IV Fluids IV NS Discontinued: completed. Total amount infused: 1000 mL. IV patency established. IV site checked: no pain, redness, or swelling. IV flushed thoroughly. --06:40 Leny Valadez R.N. Care transferred and report given (Jess RN). --07:09 Leny Valadez R.N. 07:16 05/18/17. The patient reports no complaints and he is calm and resting quietly. Overall patient status is improved- he states feels better. Care transferred and report received. --07:16 Jayme Maddox R.N. DISPOSITION / DISCHARGE 07:48 05/18/17. Departure time: 07:48. Condition at departure: improved and stable. Admitted to Acute Care. Transported via stretcher by tech with IV. Report was given to a nurse via a phone call. Report included patient's care, treatment, medications, reviewed medication reconcilliation, and condition (including any recent changes or anticipated changes). All questions were answered. Report was acknowledged and care was transferred. (SONG Giang). --07:48 Jayme Maddox R.N. 07:44 05/18/17. BP: 148/84. HR: 68. RR: 17. O2 saturation: 95% on room air. Pain level now 0/10. --07:48 Jayme Maddox R.N. Locked/Released at 05/29/2017 11:31 by Jayme Maddox R.N.
--- NOTE | 2017-05-18 06:00 | ED ORDER SUMMARY ---
..... Patient: CRISTIAN CORNELIUS OrderSheet [facility] VisitID: [id number] [place] [address] 36y, M Registration Date/Time: 05/18/2017 ORDER SHEET Weight: 129.2 kg (stated) Allergies: No Known Drug Allergy GENERAL ORDERS: US Abdomen Limited (Yes) Urgent (02:43 05/18/2017 Zhang RYDER) (Ack 2:54 IJurca ER Tech1) (4:26 CBradburn R.N.) CBC w Diff Urgent (02:44 05/18/2017 Zhang RYDER) (2:47 Srinivasan R.N.) CMP Urgent (02:05/18/2017 Zhang RYDER) (2:47 Srinivasan R.N.) Amylase Urgent (02:05/18/2017 Zhang RYDER) (2:47 JOSÉ MIGUELradjudy R.N.) Lipase Urgent (02:44 05/18/2017 Zhang RYDER) (2:47 JOSÉ MIGUELradjudy R.N.) CT Abd/Pel wo Cont Urgent (04:05/18/2017 Zhang RYDER) (Ack 4:29 LEAurca ER Tech1) (4:37 JOSÉ MIGUELradjudy R.N.) UA-Culture if indicated Urgent (04:05/18/2017 Zhang RYDER) (Ack 4:29 Jackia ER Tech1) (4:53 JOSÉ MIGUELradburn R.N.) Urine Drug Screen Urgent (04:05/18/2017 Zhang RYDER) (Ack 4:29 LEAurckyrie ER Tech1) (4:53 JOSÉ MIGUELradjudy R.N.) CRP Urgent (05:05/18/2017 Zhang RYDER) (5:22 Srinivasan R.N.) PCT (Procalcitonin) Urgent (05:05/18/2017 Zhang RYDER) (5:22 Srinivasan R.N.) MEDICATION ORDERS: IV FLUIDS: Demerol IV 25 mg (NOW) (02:43 05/18/2017 Zhang RYDER) (2:48 JOSÉ MIGUELradjudy R.N.) Zofran IV 4 mg (NOW) (02:43 05/18/2017 Zhang RYDER) (2:48 CBradjudy R.N.) IV NS : initial bolus 1000 mL (1000 mL/hr), then 200 mL/hr for 4h (NOW); Routine (02:44 05/18/2017 Zhang RYDER) (2:48 CBandreia R.N.) Demerol IV 12.5 mg (NOW) (03:16 05/18/2017 Srinivasan R.N. verbal order read back to Zhang RYDER) (3:17 Srinivasan R.N.) Demerol IV 25 mg (HIGH ALERT MEDICATION, NOW) (03:28 05/18/2017 Srinivasan LeiN. verbal order read back to Zhang RYDER) (3:29 Srinivasan R.N.) over 2 minutes Ativan IV 0.5 mg (NOW) (03:28 05/18/2017 Srinivasan R.N. verbal order read back to Zhang RYDER) (3:30 Srinivasan R.N.) over 2 minutes Toradol IV 30 mg (NOW) (04:28 05/18/2017 Zhang RYDER) (4:35 Srinivasan R.N.) ORDER SHEET NOTES: [Electronically signed by Yosi Mosley MD (07:18 05/18/2017)] [Electronically signed by Jayme Maddox R.N. (11:31 05/29/2017)] [Electronically locked/signed by Jayme Maddox R.N. (11:31 05/29/2017)]
--- NOTE | 2017-05-18 06:00 | ED CLINICAL REPORT ---
Clinical Report - Physicians/Mid Levels [facility] [address] [place] [address] 05/18/2017 2:23 Patient: CRISTIAN CORNELIUS Time Seen: 02:39 Bon 2016. Arrived- By private vehicle. Historian- patient. Note: (Pt 4th visit at this hospital for RUQ pain in the last 10 months.). CPT: ER phys charges level 5 (#640032). HISTORY OF PRESENT ILLNESS Chief Complaint: ABDOMINAL PAIN. At its maximum, severity described as 9 / 10. When seen in the E.D., severity described as 9 / 10. Modifying factors. Not worsened by anything. Not relieved by anything. This started today about 0100 and is still present. It is described as "pain" and well localized and it is described as located in the right upper quadrant and radiating to the upper back. The patient has had nausea. No loss of appetite, vomiting or diarrhea. No recent travel. Similar symptoms previously: Milder. Seen in ED. Diagnosis: gall stones. Recent medical care: Not recently seen/assessed. REVIEW OF SYSTEMS No constipation, black stools, hematemesis or difficulty with urination or urination. No pain with urination, urinary frequency, fever or sore throat or throat. No chest pain, difficulty breathing, cough or joint pain. No skin rash or rash, constipation, diarrhea or weakness. No diabetic symptoms or easy bruising. The patient has had chills and back pain. All systems otherwise negative, except as recorded above. PAST HISTORY Gallstones. Orosco's : S/P EGD and colonoscopy. [facility] ER visits times 4 times in past 8 months for RUQ pain. Additional Surgeries: no known surgeries. Medications: Ranitidine HCl Oral 150 mg, 2x a day. Allergies: No Known Drug Allergy. SOCIAL HISTORY Never smoker. Occasional alcohol use. No drug use. ADDITIONAL NOTES The nursing notes have been reviewed. PHYSICAL EXAM Vital Signs: 05/18/2017 02:28 BP: 135/76. HR: 101. RR: 20. O2 saturation: 100%. Temp: 97.7 F. Pain level now: 9/10. Appearance: Alert. Appears to be in pain. Patient in severe distress. (Cannot stand still-pacing). Eyes: Eyes normal inspection. ENT: Pharynx normal. Neck: Normal inspection. CVS: Normal heart rate and rhythm. Heart sounds normal. Pulses normal. Respiratory: No respiratory distress. Breath sounds normal. Chest nontender. Abdomen: Soft. Moderate tenderness in the right upper quadrant. Abnormal bowel sounds: diminished. Back: Normal inspection. No CVA tenderness. Skin: Skin warm. Normal skin color. No rash. Extremities: Extremities exhibit normal ROM. Neuro: Oriented X 3. No motor deficit. No sensory deficit. LABS, X-RAYS, AND EKG Abdominal CT: No acute disease. Abdominal Sonogram: Multiple gallstones are present (all mobile). No gallbladder wall thickening, pericholecystic fluid or dilated common duct. The study was independently viewed by me and interpreted contemporaneously by me. Laboratory Tests: CBC w Diff: (MORALES: 05/18/2017 02:35) ( [facility] 05/18/2017 02:56) Final results Test Result Flag Units (Reference) WHITE BLOOD COUNT 7.8 K/uL (4.5-11.5) RED BLOOD COUNT 5.49 M/uL (4.50-5.90) HEMOGLOBIN 16.6 gm/dL (13.5-17.5) HEMATOCRIT 50.9 % (41.0-53.0) MEAN CELL VOLUME 93 fL (80-100) MEAN CORPUSCULAR HGB 30 pg (26-34) MEAN CORPUSCULAR HGB CONC 33 g/dL (31-37) RED CELL DISTRIBUTION WIDTH 12.3 % (11.6-14.8) PLATELET COUNT 218 K/uL (150-400) LYMPH % 37.5 % (25-40) MONO % 5.9 % (3-14) GRANULOCYTE % 56.6 CMP: (MORALES: 05/18/2017 02:35) ( [facility] 05/18/2017 03:10) Final results Test Result Flag Units (Reference) GLUCOSE 127 H mg/dL (70-110) BUN 16 mg/dL (7-18) CREATININE 1.3 mg/dL (0.6-1.3) Estimated GFR >60 mL/min Estimated GFR- >60 mL/min Note: Persistent reduction over 3 months in eGFR<60 mL/min/1.73 m2 defines CKD. Patients with eGFR values>=60 mL/min/1.73 m2 may also have CKD if evidence ofpersistent proteinuria. Additional information may be foundat www.kidney.org. SODIUM 140 mmol/L (136-145) POTASSIUM 3.8 mmol/L (3.5-5.1) CHLORIDE 104 mmol/L (98-107) CARBON DIOXIDE 30 mmol/L (21-32) CALCIUM 8.6 mg/dL (8.5-10.1) TOTAL PROTEIN 7.4 g/dL (6.4-8.2) ALBUMIN 4.2 g/dL (3.3-5.0) BILIRUBIN, TOTAL 0.4 mg/dL (0.0-1.0) ALKALINE PHOSPHATASE 93 U/L (46-116) AST (SGOT) 24 U/L (15-37) ALT (SGPT) 61 U/L (12-78) LIPASE 186 U/L (73-393) AMYLASE 44 U/L (25-115) . PROGRESS AND PROCEDURES Course of Care: IV NS Demerol 25 mg IV times 2 then 12.5 mg IV Pt asking for more narcotics. Zofran 4 mg IV Ativan 0.5 mg IV Patient is stable. Symptoms better. Discussed case with on-call health care provider, (Roxy). Reviewed test results. Agreed upon decision to admit. Health care provider will see patient in ED. Patient/family counseled. Old medical records ordered. Disposition orders written. Disposition: Admitted to Acute Care. CLINICAL IMPRESSION Acute cholecystitis with cholelithiasis. No obstruction or choledocholithiasis. (Electronically signed by Yosi Mosley MD 05/18/2017 7:18)
--- NOTE | 2017-05-18 07:13 | DIAGNOSTIC IMAGING REPORT ---
PROCEDURE: US ABDOMEN ULTRASOUND-LIMITED INDICATION: Right abdominal pain. TECHNIQUE: Yeung scale and color Doppler sonographic images of the abdomen were obtained. COMPARISON: Comparison made abdominal ultrasound on 12/25/2016 and 07/27/2016. FINDINGS: There are two small echogenic mobile foci at the neck of the consistent with mobile gallstones. Common duct is normal common duct is normal ( 5 mm). Portions of the liver, pancreas, and right kidney are seen, and are normal. IMPRESSION: 1. There are two small echogenic mobile gallstones at the neck of the gallbladder. 2. Otherwise negative ultrasound of the gallbladder and right upper quadrant. 3. Findings discussed with Dr. Yosi Mosley.
--- NOTE | 2017-05-18 07:15 | Consultation Report ---
History Chief Complaint Right upper quadrant abdominal pain History of Present Illness A 36-year-old male who presented to [facility] emergency room complaining of right upper quadrant pain. According to the patient this abdominal discomfort has been intermittent for the last year. At one time he was told he had sludge in his gallbladder. Patient has undergone upper GI endoscopies in the past. 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 According to the patient he gets right upper quadrant abdominal pain every 2 or 3 months usually fatty food related. Otherwise nonradiating. Not associated with nausea , vomiting, fever, chills, or diarrhea. Patient denies any westley-colored stool, dark urine or icterus. Patient's last EGD was 3 months ago. While in the emergency room and ultrasound gallbladder was obtained which showed that the gallbladder had multiple small gallstones. Patient History 1. Acute cholecystitis due to biliary calculus Social History . One stepson and one stepdaughter. Patient does not smoke. Patient drinks alcohol socially. Does not use recreational drugs. 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 PAST MEDICAL/SURGICAL/HISTORY: Treatment for urethral stricture. FAMILY HISTORY: Mother age 68 history of breast cancer. Father age 70 history of Orosco's esophagus. 1 sister alive and well Medications and Allergies Medications Ranitidine 150 mg daily Allergies Coded Allergies: No Known Drug Allergy (05/18/17) Reconcile Medications Scheduled Medications Ranitidine HCl (Acid Behavior Analyst) 150 MG TAB 150 MG PO BID (Reported) Review of Systems Other No history of hepatitis, jaundice, fever, heart murmurs requiring antibiotics, bleeding tendencies, or blood transfusions. Maintain 12 point review of systems negative Physical Exam Vital Signs / I&Os Afebrile, stable vital signs General Appearance Alert, Oriented X3, Cooperative, No acute distress HEENT Normal exam, Atraumatic, PERRLA, EOMI, Moist mucous membranes Lungs Clear to auscultation Neck Normal exam, Supple, No JVD, No masses, No thyromegaly, No lymphadenopathy, 2+ carotid pulse wo bruit Cardiovascular Regular rate and rhythm Abdomen Normal bowel sounds, No tenderness, No guarding, No hepatosplenomegaly Extremities No cyanosis, No clubbing, No edema Skin warm and dry. No evidence of icterus Neurological No lateralizing signs Psych/Mental Status Mental status normal LAB Results Laboratory Tests 05/18 05/18 05/18 05/18 0235 [id number] Chemistry Plasma Sodium (136 - 145 mmol/L) 140 Plasma Potassium (3.5 - 5.1 mmol/L) 3.8 Plasma Chloride (98 - 107 mmol/L) 104 CO2 (Enzymatic) (21 - 32 mmol/L) 30 BUN (7 - 18 mg/dL) 16 Creatinine (0.6 - 1.3 mg/dL) 1.3 Est GFR ( Amer) (mL/min) >60 Est GFR (Non-Af Amer) (mL/min) >60 Glucose (70 - 110 mg/dL) 127 Plasma Calcium (8.5 - 10.1 mg/dL) 8.6 Total Bilirubin (0.0 - 1.0 mg/dL) 0.4 AST (15 - 37 U/L) 24 ALT (12 - 78 U/L) 61 Alkaline Phosphatase (46 - 116 U/L) 93 C-Reactive Protein (0.0 - 0.9 mg/dL) < 0.2 Total Protein (6.4 - 8.2 g/dL) 7.4 Albumin (3.3 - 5.0 g/dL) 4.2 Amylase (25 - 115 U/L) 44 Lipase (73 - 393 U/L) 186 Procalcitonin (0 - 0.5 ng/mL) <0.5 Hematology WBC (4.5 - 11.5 K/uL) 7.8 RBC (4.50 - 5.90 M/uL) 5.49 Hgb (13.5 - 17.5 gm/dL) 16.6 Hct (41.0 - 53.0 %) 50.9 MCV (80 - 100 fL) 93 MCH (26 - 34 pg) 30 RDW (11.6 - 14.8 %) 12.3 Gran % 56.6 Lymph % (Auto) (25 - 40 %) 37.5 [place] % (Auto) (3 - 14 %) 5.9 Plt Count, EDTA (150 - 400 K/uL) 218 PUBS MCHC (31 - 37 g/dL) 33 Toxicology Urine Opiates Screen (NEGATIVE) NEGATIVE Urine Methadone Screen (NEGATIVE) NEGATIVE Ur Barbiturates Screen (NEGATIVE) NEGATIVE U Amphetamin/Meth Scrn (NEGATIVE) NEGATIVE MDMA (Ecstasy) Screen (NEGATIVE) NEGATIVE U Benzodiazepines Scrn (NEGATIVE) NEGATIVE Urine Cocaine Screen (NEGATIVE) NEGATIVE U Cannabinoids Screen (NEGATIVE) NEGATIVE Urines Urine Color YELLOW Urine Appearance CLEAR Urine pH (5.0 - 8.0) 6.0 Ur Specific [place] (1.010 - 1.030) 1.025 Urine Protein (NEGATIVE) NEGATIVE Urine Ketones (NEGATIVE) NEGATIVE Urine Blood (NEGATIVE) NEGATIVE Urine Nitrite (NEGATIVE) NEGATIVE Urine Bilirubin (NEGATIVE) NEGATIVE Urine Urobilinogen (0.2 - 1.0 EU/dL) 0.2 Ur Leukocyte Esterase (NEGATIVE) NEGATIVE Urine RBC (0 - 1 rbc/hpf) 0-1 Urine WBC (0 - 1 wbc/hpf) 0-1 Ur Epithelial Cells (0 - 5 EPI/hpf) NONE SEEN Urine Bacteria (NONE SEEN) NONE SEEN Urine Glucose (NEGATIVE) NEGATIVE Urine Comment CULT NOT INDICATED Imaging Ultrasound of gallbladder. Numerous gallstones Assessment and Plan Problem List 1. Acute cholecystitis due to biliary calculus Plan Symptomatic cholelithiasis. I discussed the pathophysiology of gallbladder disease with the patient including potential risks of cholelithiasis, to include, but not exclusive of acute cholecystitis, choledocholithiasis, gallstone pancreatitis, and contents of the gallbladder. Risks of surgery to include but not exclusive of trocar site infection, trocar site hernia, hemorrhage/transfusion, conversion to open procedure, bile leak, damage to major ductal system requiring rerouting of the small intestine to the liver, intra- abdominal infection, damage to local structures, pneumonia, pulmonary embolism, and postoperative hepatitis. The risk of leaving the gallbladder behind the cystic gallbladder will serve as a nidus for further gallstone formation, and potential complications. We have also discussed him being discharged following up with his family doctor in seeing a surgeon of his choice. Patient understands and agrees to proceed. All questions answered in satisfaction. We will schedule him urgently for laparoscopic low segment
--- NOTE | 2017-05-18 07:18 | DIAGNOSTIC IMAGING REPORT ---
PROCEDURE: CT ABDOMEN/PELVIS W/O CONTRAST INDICATION: Right abdominal pain. TECHNIQUE: Noncontrast axial images with sagittal and coronal reformations. Intravenous contrast was not utilized (assessing for obstructing calculi). Preliminary report provided by Mirian Bob MD ([facility]). COMPARISON: Impaired to abdominal ultrasound earlier in the day (05/18/2017). FINDINGS: ABDOMEN: Gallbladder, liver, spleen, pancreas, and aorta are normal. There is a 0.5 mm nonobstructing calculus in the lower pole left kidney. Moderate ingested material in the stomach. Bowel pattern is normal, including appendix. PELVIS: Pelvic structures are normal. No evidence of free fluid. IMPRESSION: 1. Moderate ingested material in the stomach. 2. There is a 0.5 mm nonobstructing calculus in the lower pole left kidney (most likely incidental finding). 3. No evidence of urinary tract obstruction or calculus. 4. Otherwise negative CT abdomen and pelvis. 5. Findings discussed with Dr. Yosi Mosley. All CT scans at this facility use dose modulation, iterative reconstruction, and/or weight-based dosing when appropriate to reduce radiation dose to as low as reasonably achievable.
--- NOTE | 2017-05-18 07:18 | DIAGNOSTIC IMAGING REPORT ---
PROCEDURE: CT ABDOMEN/PELVIS W/O CONTRAST INDICATION: Right abdominal pain. TECHNIQUE: Noncontrast axial images with sagittal and coronal reformations. Intravenous contrast was not utilized (assessing for obstructing calculi). Preliminary report provided by Mirian Bob MD ([facility]). COMPARISON: Impaired to abdominal ultrasound earlier in the day (05/18/2017). FINDINGS: ABDOMEN: Gallbladder, liver, spleen, pancreas, and aorta are normal. There is a 0.5 mm nonobstructing calculus in the lower pole left kidney. Moderate ingested material in the stomach. Bowel pattern is normal, including appendix. PELVIS: Pelvic structures are normal. No evidence of free fluid. IMPRESSION: 1. Moderate ingested material in the stomach. 2. There is a 0.5 mm nonobstructing calculus in the lower pole left kidney (most likely incidental finding). 3. No evidence of urinary tract obstruction or calculus. 4. Otherwise negative CT abdomen and pelvis. 5. Findings discussed with Dr. Yosi Mosley. All CT scans at this facility use dose modulation, iterative reconstruction, and/or weight-based dosing when appropriate to reduce radiation dose to as low as reasonably achievable.
[2017-05-18] MEDS ORDERED: ACID REDUCER150 MG PO (09:23)
--- NOTE | 2017-05-18 14:07 | DIAGNOSTIC IMAGING REPORT ---
PROCEDURE: XR INTRAOPERATIVE LAP RICHARD INDICATION: LAP RICHARD WITH IOC TECHNIQUE: Intraoperative fluoroscopy provided for Dr. Ramsey performing an intraoperative cholangiogram following cholecystectomy. Total fluoroscopy time 0.19-minute Cumulative dose 15.1 mGy. COMPARISON: None. FINDINGS: Two intraoperative fluoroscopic spot images of the right upper quadrant of the abdomen demonstrate cannulation of the cystic duct stump and opacification of the intrahepatic and extrahepatic biliary tree. There are no filling defects. There is normal passage of contrast into the duodenum. IMPRESSION: 1. Negative intraoperative cholangiogram.
--- NOTE | 2017-05-18 14:13 | Operative Report ---
Operative Report Date of Surgery: 05/18/17 Preoperate Diagnosis: symptomatic cholelithiasis Postoperative Diagnosis: adhesions, right lower liver and gallbladder, acute cholecystitis Surgeon: Juan Ramsey MD [employer] Surgeon: none Procedure Performed: Laparoscopic lysis of effusions to right lobe of liver and gallbladder, cholecystectomy, thorascopic intraoperative pledget remnant interpretation Anesthesia: Gen. endotracheal Indications: 28-year-old male one year history of intermittent right upper quadrant abdominal pain. The pain usually associated after eating a fatty meal. Pain reoccurring every 2 or 3 months. Ultrasound shows cholelithiasis. FINDINGS: Omental adhesions to the right lobe of the liver and gallbladder. Edematous back wall gallbladder, gallbladder neck encased in fat. Intraoperative cholangiogram showing free flow of contrast material into the duodenum, visualization, intrahepatic duct, hepatic duct and common bile duct. No evidence of obstruction. Surgical Technique: Patient brought to the operating room and placed in the dorsal supine position. Patient was administered general endotracheal anesthesia by the anesthesiology department. After proper anesthesia taken effect patient's abdomen was prepped using Betadine and draped in a sterile fashion. An infraumbilical incision made in the skin and down through the subcutaneous tissue. A Veress needle was inserted through this site and into the abdominal cavity. After ascertaining the appropriate position with suction irrigation a pneumoperitoneum was obtained using CO2 insufflation to approximate 14 15 mmHg pressure. The varices needle was removed and replaced with 10 mm trocar. The trocar removed leaving the sleeve behind. A laparoscopic video camera was introduced into the abdominal cavity. Under direct visualization a separate 10 mm trocar was placed in subxiphoid region. Two 5 mm trochars were placed in the anterior lateral abdominal wall approximately 3-4 fingerbreadths below the costal margin. Each trocar entered the abdominal cavity under direct visualization. Trochars removed leaving the sleeve behind through which laparoscopic instrumentation was introduced into the abdominal cavity. The aforementioned findings noted. Dense adhesions of omentum to the right lobe of the liver and gallbladder were taken down very carefully to avoid injury to surrounding structures. This was a tedious dissection requiring more than 50% of the case in order to get exposure of the gallbladder and the neck of the gallbladder. Exposure was difficult secondary to the patient's body habitus/ generous omentum. The gallbladder grasped retracted cephalad. Using a combination of blunt dissection and electrocautery were able to circumferentially isolate the cystic duct. A clip was placed at the junction of the neck of the cystic duct and the gallbladder. Small incision made in the anterior surface of the cystic duct. Percutaneous cholangiocatheter was threaded through the anterior abdominal wall into the cystic duct and clipped into position. The fluoroscopic intraoperative cholangiogram was performed.. The aforementioned findings noted, the cholangiogram catheter was retrieved from the cystic duct and the abdominal cavity. The distal cystic duct was clipped in continuity divided. The cystic artery identified clipped continuity divided. The gallbladder was taken down from its bed in a retrograde fashion using electrocautery dissection. When the gallbladder was completely free from its bed, the gallbladder was placed in a sterile specimen container bag and retrieved from the abdominal cavity. The gallbladder specimen was sent to pathology. The gallbladder bed was inspected for hemostasis. The assuring ourselves of proper hemostasis, the right upper quadrant was irrigated copiously with normal saline antibiotic solution and irrigant suctioned out. Approximately 30 cc 0.5% Marcaine with epinephrine were sprayed over the right lobe of of the liver for postop analgesia. The pneumoperitoneum released. All trochars removed and the abdominal cavity. All trocar sites were approximated using 4-0 subcuticular Polysorb interrupted suture. Steri-Strips placed over the wound. Sterile occlusive dressing placed over each site. Patient tolerated procedure well. Patient was extubated and transferred recovery room in stable condition. There were no intraoperative anesthetic outpatient. CONDITION: Stable to postoperative anesthesia recovery room COMPLICATIONS: None ESTIMATED BLOOD LOSS: minimal FLUIDS: 600 cc lactate Ringer's SPECIMEN: Gallbladder and contents
[2017-05-19 02:34] VITALS: BP 131/78
[2017-05-19 06:27] VITALS: BP 126/80
[2017-05-19] MEDS ORDERED: HYCET1 ML PO (08:26)
--- NOTE | 2017-05-19 08:28 | Provider's Discharge Care Plan ---
Problem, Goal, Plan Problem List 1. S/P laparoscopic cholecystectomy Goals: Improve disease control, Improve function, Therapeutic intervention Instructions: Follow up as directed, Take meds as directed
--- NOTE | 2017-05-29 11:31 | ED MED RECONCILIATION SUMMARY ---
Patient: CRISTIAN CORNELIUS Medication Reconciliation Report [facility] VisitID: [id number] [address] [place] [address] 36y, M Registration Date/Time: 05/18/2017 Weight: 129.2 kg Height/Length: 72 in. BMI: 38.7 ALLERGIES: No Known Drug Allergy The patient's Home Medications are listed below: THE FOLLOWING MEDICATIONS NEED TO BE RECONCILED: Ranitidine HCl Oral 150 mg, 2x a day The source(s) of the original Home Medication information: Not obtained. The following Medications were given to the patient in the Emergency Department: IV NS IV Fluids bolus 1000 mL wide open, administered: 05/18/2017 2:45:00 AM Demerol [IVP] IVP 25 mg, administered: 05/18/2017 2:46:00 AM Zofran [IVP] IVP 4 mg, administered: 05/18/2017 2:48:00 AM Demerol [IVP] IVP 12.5 mg, administered: 05/18/2017 3:01:00 AM Demerol [IVP] IVP 25 mg, administered: 05/18/2017 3:27:00 AM Ativan [IVP] IVP 0.5 mg, administered: 05/18/2017 3:29:00 AM Toradol [IVP] IVP 30 mg, administered: 05/18/2017 4:35:00 AM The following Medications were prescribed to the patient: None.
--- NOTE | 2017-05-29 11:31 | ED MAR SUMMARY ---
..... Medication Administration Record [facility] [address] [place] [address] Patient: CRISTIAN CORNELIUS Visit ID: [id number] 36y, M Weight: 129.2 kg Height/Length: 72 in BMI: 38.7 ALLERGIES: No Known Drug Allergy Start 02:45 05/18/2017 Leny Valadez R.N., Stop 04:39 05/18/2017 Leny Valadez R.N. Medication Administered: IV NS (SALINE), Dose: IV Fluids over 1 hour(s), Bolus: 1000 mL wide open, Dispensed: 1000 mL bag, Site: #1 right AC. Medication Ordered: IV NS : initial bolus 1000 mL (1000 mL/hr), then 200 mL/hr for 4h (NOW); Routine. Given 02:46 05/18/2017 Leny Valadez R.N. Medication Administered: DEMEROL [IVP] (MEPERIDINE HCL), Dose: 25 mg IVP over 2 minute(s), Site: #1 right AC. Medication Ordered: Demerol IV 25 mg (NOW). Given 02:48 05/18/2017 Leny Valadez R.N. Medication Administered: ZOFRAN [IVP] (ONDANSETRON HCL), Dose: 4 mg IVP over 2 minute(s), Site: #1 right AC. Medication Ordered: Zofran IV 4 mg (NOW). Given 03:01 05/18/2017 Leny Valadez R.N. Medication Administered: DEMEROL [IVP] (MEPERIDINE HCL), Dose: 12.5 mg IVP over 2 minute(s), Site: #1 right AC. Medication Ordered: Demerol IV 12.5 mg (NOW). Given 03:27 05/18/2017 Leny Valadez R.N. Medication Administered: DEMEROL [IVP] (MEPERIDINE HCL), Dose: 25 mg IVP over 2 minute(s), Site: #1 right AC. Medication Ordered: Demerol IV 25 mg (HIGH ALERT MEDICATION, NOW). Given 03:29 05/18/2017 Leny Valadez R.N. Medication Administered: ATIVAN [IVP] (LORAZEPAM), Dose: 0.5 mg IVP over 2 minute(s), Site: #1 right AC. Medication Ordered: Ativan IV 0.5 mg (NOW). Given 04:35 05/18/2017 Leny Valadez R.N. Medication Administered: TORADOL [IVP], Dose: 30 mg IVP over 2 minute(s), Site: #1 right AC. Medication Ordered: Toradol IV 30 mg (NOW).
--- NOTE | 2017-05-29 11:31 | ED DISCHARGE INSTRUCTIONS ---
Patient: CRISTIAN CORNELIUS General Instructions [facility] VisitID: [id number] [place] [address] 36y, M Registration Date/Time: 05/18/2017 Acute cholecystitis with cholelithiasis. No obstruction or choledocholithiasis. ADDITIONAL INFORMATION GallstonesWith Biliary Colic [Confirmed Dx] The abdominal pain that you have today is due to spasm of the gallbladder. The gallbladder is a small sac under the liver which stores and releases bile. Bile is a fluid that aids in the digestion of fat. A gallstone may form inside the gallbladder and block the flow of bile fluid. This causes mild to severe crampy pain in the mid or right upper abdomen with nausea and vomiting. Home Care: Rest in bed and follow a clear liquid diet until feeling better. If pain or nausea medicine was given to help with your symptoms, take these as directed. Fat in your diet makes the gallbladder contract and may cause increased pain. Therefore, avoid fat in your diet over the next two days and follow a low-fat diet after that. If you are overweight, a low-fat diet will also help you lose weight. Follow Up with your doctor. There is a 50% chance that you will have another episode of pain from your gallstones during the next 2 years. Removal of the gallbladder is the treatment of choice to prevent this. Schedule an appointment with your own doctor during the next week to discuss the treatment options. Get Prompt Medical Attention if any of the following occur: Pain gets worse or moves to the right lower abdomen Repeated vomiting Swelling of the abdomen Pain lasts over 6 hours Fever of 100.4F (38C) or higher, or as directed by your healthcare provider Weakness, dizziness or fainting Dark urine or light colored stools Yellow color of the skin or eyes Chest, arm, back, neck or jaw pain You have been given the following additional information: Biliary Colic With Gallstone (Confirmed) (Electronically signed by Yosi Mosley MD 05/18/2017 7:18)
--- NOTE | 2017-05-29 11:31 | ED DISCHARGE INSTRUCTIONS ---
Patient: CRISTIAN CORNELIUS General Instructions [facility] VisitID: [id number] [place] [address] 36y, M Registration Date/Time: 05/18/2017 Acute cholecystitis with cholelithiasis. No obstruction or choledocholithiasis. ADDITIONAL INFORMATION GallstonesWith Biliary Colic [Confirmed Dx] The abdominal pain that you have today is due to spasm of the gallbladder. The gallbladder is a small sac under the liver which stores and releases bile. Bile is a fluid that aids in the digestion of fat. A gallstone may form inside the gallbladder and block the flow of bile fluid. This causes mild to severe crampy pain in the mid or right upper abdomen with nausea and vomiting. Home Care: Rest in bed and follow a clear liquid diet until feeling better. If pain or nausea medicine was given to help with your symptoms, take these as directed. Fat in your diet makes the gallbladder contract and may cause increased pain. Therefore, avoid fat in your diet over the next two days and follow a low-fat diet after that. If you are overweight, a low-fat diet will also help you lose weight. Follow Up with your doctor. There is a 50% chance that you will have another episode of pain from your gallstones during the next 2 years. Removal of the gallbladder is the treatment of choice to prevent this. Schedule an appointment with your own doctor during the next week to discuss the treatment options. Get Prompt Medical Attention if any of the following occur: Pain gets worse or moves to the right lower abdomen Repeated vomiting Swelling of the abdomen Pain lasts over 6 hours Fever of 100.4F (38C) or higher, or as directed by your healthcare provider Weakness, dizziness or fainting Dark urine or light colored stools Yellow color of the skin or eyes Chest, arm, back, neck or jaw pain You have been given the following additional information: Biliary Colic With Gallstone (Confirmed) (Electronically signed by Yosi Mosley MD 05/18/2017 7:18)
--- NOTE | 2017-05-29 11:31 | ED MED RECONCILIATION SUMMARY ---
Patient: CRISTIAN CORNELIUS Medication Reconciliation Report [facility] VisitID: [id number] [address] [place] [address] 36y, M Registration Date/Time: 05/18/2017 Weight: 129.2 kg Height/Length: 72 in. BMI: 38.7 ALLERGIES: No Known Drug Allergy The patient's Home Medications are listed below: THE FOLLOWING MEDICATIONS NEED TO BE RECONCILED: Ranitidine HCl Oral 150 mg, 2x a day The source(s) of the original Home Medication information: Not obtained. The following Medications were given to the patient in the Emergency Department: IV NS IV Fluids bolus 1000 mL wide open, administered: 05/18/2017 2:45:00 AM Demerol [IVP] IVP 25 mg, administered: 05/18/2017 2:46:00 AM Zofran [IVP] IVP 4 mg, administered: 05/18/2017 2:48:00 AM Demerol [IVP] IVP 12.5 mg, administered: 05/18/2017 3:01:00 AM Demerol [IVP] IVP 25 mg, administered: 05/18/2017 3:27:00 AM Ativan [IVP] IVP 0.5 mg, administered: 05/18/2017 3:29:00 AM Toradol [IVP] IVP 30 mg, administered: 05/18/2017 4:35:00 AM The following Medications were prescribed to the patient: None.
--- NOTE | 2017-05-29 11:31 | ED MAR SUMMARY ---
..... Medication Administration Record [facility] [address] [place] [address] Patient: CIRSTIAN CORNELIUS Visit ID: [id number] 36y, M Weight: 129.2 kg Height/Length: 72 in BMI: 38.7 ALLERGIES: No Known Drug Allergy Start 02:45 05/18/2017 Leny Valadez R.N., Stop 04:39 05/18/2017 Leny Valadez R.N. Medication Administered: IV NS (SALINE), Dose: IV Fluids over 1 hour(s), Bolus: 1000 mL wide open, Dispensed: 1000 mL bag, Site: #1 right AC. Medication Ordered: IV NS : initial bolus 1000 mL (1000 mL/hr), then 200 mL/hr for 4h (NOW); Routine. Given 02:46 05/18/2017 Leny Valadez R.N. Medication Administered: DEMEROL [IVP] (MEPERIDINE HCL), Dose: 25 mg IVP over 2 minute(s), Site: #1 right AC. Medication Ordered: Demerol IV 25 mg (NOW). Given 02:48 05/18/2017 Leny Valadez R.N. Medication Administered: ZOFRAN [IVP] (ONDANSETRON HCL), Dose: 4 mg IVP over 2 minute(s), Site: #1 right AC. Medication Ordered: Zofran IV 4 mg (NOW). Given 03:01 05/18/2017 Leny Valadez R.N. Medication Administered: DEMEROL [IVP] (MEPERIDINE HCL), Dose: 12.5 mg IVP over 2 minute(s), Site: #1 right AC. Medication Ordered: Demerol IV 12.5 mg (NOW). Given 03:27 05/18/2017 Leny Valadez R.N. Medication Administered: DEMEROL [IVP] (MEPERIDINE HCL), Dose: 25 mg IVP over 2 minute(s), Site: #1 right AC. Medication Ordered: Demerol IV 25 mg (HIGH ALERT MEDICATION, NOW). Given 03:29 05/18/2017 Leny Valadez R.N. Medication Administered: ATIVAN [IVP] (LORAZEPAM), Dose: 0.5 mg IVP over 2 minute(s), Site: #1 right AC. Medication Ordered: Ativan IV 0.5 mg (NOW). Given 04:35 05/18/2017 Leny Valadez R.N. Medication Administered: TORADOL [IVP], Dose: 30 mg IVP over 2 minute(s), Site: #1 right AC. Medication Ordered: Toradol IV 30 mg (NOW).
== END 2017-05-19 09:55 | disposition home or self-care (01) ==
LOC: ED SRH 02:23 → TRANS SRH 06:08 → ACUTE2 SRH 06:08
PROVIDERS: Specialist; ADMIT Emergency Medicine
PROC: BF101ZZ Fluoroscopy of Bile Ducts using Low Osmolar Contrast (ICD-10-PCS; principal; 2017-05-18 12:30)
PROC: 0FT44ZZ Resection of Gallbladder, Percutaneous Endoscopic Approach (ICD-10-PCS; principal; 2017-05-18 12:30)
PROC: 0FN24ZZ Release Left Lobe Liver, Percutaneous Endoscopic Approach (ICD-10-PCS; principal; 2017-05-18 12:30)
DX: K80.00 Calculus of gallbladder with acute cholecystitis without obstruction (principal); R11.0 Nausea; K66.0 Peritoneal adhesions (postprocedural) (postinfection)
CPT/HCPCS: 29229; 29230; 29250; 29253; 50002; 60001; 70002; 80102; 80212; 80248; 82669; 82794; 82807; 83338; 83339; 83348; 83587; 83920; 83937; 83982; 84038; 90004; 90100; 91585; 92235; 92530; 92760; 92761; 92762; 92763; 92764; 92765; 92766; 92767; 93004; 95059